=== PATIENT | female | born 1970 | race Caucasian/White ===

== ENCOUNTER 2019-12-10 00:09 | Emergency (ER) | payer BC, SELFPAY ==
[2019-12-10] VITALS (10 sets, daily range): BP systolic 140–154; BP diastolic 68–89; PULSE 88–95; RESP 13–22; TEMP 36.7; O2SAT 96–98
--- NOTE | 2019-12-10 00:29 | ED.ALLEREA ---
HPI - Allergic Reaction General Chief complaint: Allergic Reaction Stated complaint: allergic reaction Time Seen by Provider: 12/10/19 00:19 Source: RN notes reviewed History of Present Illness HPI narrative: Patient presents emergency department from home for lip swelling. Patient states symptoms began several hours ago with swelling of her right lip and progressed into swelling of the entire bilateral lower lip. Patient states that she has had no swelling of the lips she states mild feeling of swelling in throat but denies any difficulty speaking or swallowing denies any shortness of breath or chest pain. The patient states she did take 75 mg of Benadryl at home as well as 1 5 mg prednisone tablet patient denies any new medication and does states she was on Cipro in the past but is now on amlodipine and metoprolol Related Data Home Medications Medication Instructions Recorded Confirmed amlodipine-benazepril 1 cap PO DAILY 12/10/19 bupropion HCl 150 mg PO DAILY 12/10/19 cetirizine 10 mg PO DAILY PRN 12/10/19 escitalopram oxalate 10 mg PO DAILY 12/10/19 fluticasone furoate-vilanterol 1 ea INHALATION BID 12/10/19 [Breo Ellipta] hydroxychloroquine 200 mg PO BID 12/10/19 levonorgestrel-ethinyl estrad 1 tablet PO DAILY 12/10/19 [Jolessa] metoprolol succinate 25 mg PO DAILY 12/10/19 prednisone 10 mg PO BID 12/10/19 Allergies Allergy/AdvReac Type Severity Reaction Status Date / Time erythromycin base Allergy Mild NAUSEA/VOMI Verified 12/10/19 02:04 TING KETEK Allergy Mild NAUSEA/VOMI Uncoded 12/10/19 02:04 TING Review of Systems Review of Systems: Narrative: Gen.: Denies fevers or chills Eyes: Denies eye pain or visual change ENT: See HPI Respiratory: Denies shortness of breath or cough CV: Denies chest pain or palpitations GI: Denies abdominal pain nausea, emesis Musculoskeletal: Denies back pain or muscle pain Neuro: Denies headache Skin: Denies rash Except as documented, all other systems reviewed and negative [facility] Past Medical History Medical History (Updated 12/10/19 @ 03:22 by Tiago Ramsey DO) Hypertension Sjogren's disease Social History Social History (Updated 06/05/20 @ 00:32 by KENDALL Solomon Smoking status: Never smoker Gender identity (if verbalized by the patient): Female Exam Narrative: Exam Narrative: APPEARANCE: No acute distress, nontoxic, resting in bed EYES: EOMI HEENT: Normocephalic, atraumatic, nares patent oromucosa moist, swelling of the lower lip, no swelling of the upper lip airway patent tolerating own secretions voice normal uvula midline RESPIRATORY: No respiratory distress Clear to auscultation bilaterally with no rhonchi wheezing or rales. CARDIOVASCULAR: Regular rate and rhythm without murmurs rubs or gallops. ABDOMINAL: Soft, nontender, MUSCULOSKELETAl: Moves all extremities. No clubbing, cyanosis or edema. NEURO: Awake and alert. Following commands, speech normal, no focal deficits SKIN:: Warm, dry. No rashes lesions or abrasions PSYCHIATRIC: Normal affect/mood, Course Course Emergency Course: Upon review of the patient's medication she is actually on amlodipine 5 with benazepril which I believe is the cause of her symptoms Patient is feeling much better lip swelling has continued to decrease no shortness of breath or difficulty swallowing believe the patient may be discharged at this time Discussed with patient results of workup and diagnosis. Discussed need for follow-up with primary care, proper use of medication, and reasons to return to the emergency department. Patient understands and agrees to current treatment plan discussed with patient to stop taking her benazepril with amlodipine and will write prescription for amlodipine only Vital Signs Vital signs: Vital Signs Temperature 98.1 F 12/10/19 00:10 Pulse Rate 91 12/10/19 00:10 Respiratory Rate 16 12/10/19 00:10 Blood Pressure 149/75 H 12/10/19 00:10 Pulse Oxi
[2019-12-10] MEDS: methylPREDNISolone SOD SUCC 125 MG VIAL IV PUSH (00:50)
[2019-12-10] MEDS: FAMOTIDINE 20 MG/2 ML VIAL IV PUSH (01:11)
== END 2019-12-10 03:55 | disposition home or self-care (01) ==
PROVIDERS: Emergency Provider Emergency Medicine; PCP Internal Medicine
DX: T78.3XXA Angioneurotic edema, initial encounter (principal); I10 Essential (primary) hypertension; M35.00 Sjogren syndrome, unspecified
CPT/HCPCS: 96374; 96375; 99284; J2930

== ENCOUNTER 2021-05-21 10:03 | Emergency (ER) | payer BC, SELFPAY ==
[2021-05-21 10:23] VITALS: BP 134/75; PULSE 92; RESP 16; TEMP 36.9; O2SAT 100
--- NOTE | 2021-05-21 10:28 | ED.BACK ---
HPI - Back Pain/Injury General Chief Complaint: Back Pain/Injury Stated Complaint: Neck Pain,Pain Lower Back Rt Time Seen by Provider: 05/21/21 10:28 Source: patient and RN notes reviewed History of Present Illness HPI Narrative: 51-year-old female presents to the [facility] with complaints of neck pain and low back pain since Friday, 5 days. Pain right side lower back. 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 A lot of repetitive motion. Denies any numbness or tingling in extremities. Moves all joints without issue and freely. No saddle anesthesia. No loss or retention of bowel or bladder MD elicited complaint: back pain Related Data Home Medications Medication Instructions Recorded Confirmed bupropion HCl 150 mg PO DAILY 12/10/19 05/21/21 fluticasone furoate-vilanterol 1 ea INHALATION BID 12/10/19 05/21/21 [Breo Ellipta] levonorgestrel-ethinyl estrad 1 tablet PO DAILY 12/10/19 05/21/21 [Jolessa] metoprolol succinate 25 mg PO DAILY 12/10/19 05/21/21 hydroxychloroquine [Plaquenil] 200 mg PO DAILY 05/21/21 05/21/21 milnacipran [Savella] 50 mg PO DAILY 05/21/21 05/21/21 Allergies Allergy/AdvReac Type Severity Reaction Status Date / Time erythromycin base Allergy Mild NAUSEA/VOMI Verified 05/21/21 10:46 TING NSAIDS (Non-Steroidal AdvReac Intermediate GI bleed Verified 05/21/21 10:46 Anti-Inflamma KETEK Allergy Mild NAUSEA/VOMI Uncoded 05/21/21 10:46 TING Review of Systems Review of Systems: All systems reviewed & are unremarkable except as noted in HPI and below Constitutional: Constitutional: Reports no additional constitutional complaints, Denies chills and Denies fever(s) Eyes: Eyes: Reports no additional eye complaints ENT: Reports system reviewed and no additional complaints, except as documented Cardiovascular: Cardiovascular: Reports no additional cardiovascular complaints Respiratory: Respiratory: Reports no additional respiratory complaints Gastrointestinal: Gastrointestinal: Reports no additional gastrointestinal complaints Genitourinary: Genitourinary: Reports no additional female genitourinary complaints Musculoskeletal: Musculoskeletal: Reports as per HPI and Reports back pain Comments: neck pain Integumentary/Breasts: Skin/Breast: Reports system reviewed and no additional complaints, except as docu Neurologic: Reports system reviewed and no additional complaints, except as documented Psychiatric: Psychiatric: Reports no additional psychiatric complaints Allergic/Immunologic: Allergic/Immunologic: Reports no additional allergic/immunologic complaints PMFSH Past Medical History Medical History Hypertension Sjogren's disease Social History Social History Smoking status: Never smoker Gender identity (if verbalized by the patient): Female Comments At the time of my signature, I reviewed and agree with the nursing past medical, surgical, social, and family history. There is no relevant family history pertinent to the patient complaint. Exam Const: General: healthy appearing, no acute distress and alert Nutritional Appearance: well nourished Orientation/consciousness: patient oriented x3 Limitations: no limitations HENMT: Head: normal to inspection Ears: external ears normal, TM's normal bilaterally and EAC's normal Eyes: Conjunctivae: conjunctivae normal Pupils: Equal, round and reactive pupils present Neck: Neck: normal visual inspection, no lymphadenopathy and no meningeal signs Chest: Chest palpation & inspection: normal inspection of the chest Resp: Effort & Inspection: normal respiratory effort and no use of accessory muscles Auscultation: clear to auscultation bilaterally, no crackles, no rales, no rhonchi and no wheezes Cardio: Rate: regular rate Rhythm: regular rhythm GI: GI Palp: Yes Soft to palpation and No Tenderness to palpation present (GI) Back/
== END 2021-05-21 10:52 | disposition home or self-care (01) ==
PROVIDERS: Emergency Provider Nurse Practitioner; PCP Internal Medicine
DX: M54.31 Sciatica, right side (principal); S39.012A Strain of muscle, fascia and tendon of lower back, initial encounter; S16.1XXA Strain of muscle, fascia and tendon at neck level, initial encounter; X50.3XXA Overexertion from repetitive movements, initial encounter; Y99.0 Civilian activity done for income or pay; I10 Essential (primary) hypertension; M35.00 Sjogren syndrome, unspecified
CPT/HCPCS: 99213; G0463

== ENCOUNTER → 2022-02-25 14:06 | Outpatient (CLI) | payer BC, SELFPAY ==
--- NOTE | ~2022-02-25 | DEXA_ITS ---
Bone Density Report Name: ANDRES LI Age: 52 Sex: Female Ethnicity: White Date of : 1970 Indication: screening for osteoporosis; parental hip fracture; height loss; asthma or emphysema; Referring Provider: AUDI ARSHAD Study: Bone densitometry was performed. Exam Date: February 25, 2022 Accession number: [id number] Bone Density: Region BMD T-score Z-score Classification AP Spine (L1-L4) 1.269 2.0 2.9 Normal Femoral Neck (Left) 0.713 -1.2 -0.4 Osteopenia Total Hip (Left) 1.007 0.5 1.1 Normal Femoral Neck (Right) 0.745 -0.9 -0.1 Normal Total Hip (Right) 1.014 0.6 1.1 Normal Total Hip Mean 1.011 0.6 1.1 Normal World Health Organization criteria for BMD impression classify patients as: Normal (T-score at or above -1.0), Osteopenia (T-score between -1.0 and -2.5), or Osteoporosis (T-score at or below -2.5). 10-year Fracture Risk: FRAX not reported because: Premenopausal woman Treated for osteoporosis Clinical Information Provided by Patient: Parent has had a hip fracture Is being treated for osteoporosis Has used the following medications: HRT (i.e. estrogen/hormone therapy) Has the following medical conditions: Asthma or Emphysema Patient maximum height was 65.5 No regular weight bearing exercise Drinks caffeinated beverages Onset of menses at age 16 Premenopausal Number of children 2 Impression: The patient's bone mass is within expected range for age, gender and ethnicity. The patient has risk factors, including: parental hip fracture. Discussion: It is important to ask patients whether they are taking their medications and to encourage continued and appropriate compliance with their osteoporosis therapies to reduce fracture risk. It is also important to review their risk factors and encourage appropriate calcium and vitamin D intakes, exercise, fall prevention and other lifestyle measures. Follow-Up: Consider a repeat BMD and Vertebral Fracture Assessment (VFA) exam in 2 years or sooner if medically necessary, to reassess this patient's status. Reported by: MORIAH on 02/25/2022 3:09:00 PM. Reviewed, dictated and finalized at location [facility]
== END ==
DX: M25.559 Pain in unspecified hip (principal); M85.852 Other specified disorders of bone density and structure, left thigh
CPT/HCPCS: 77080

== ENCOUNTER 2023-02-13 13:12 | Outpatient (CLI) | payer BC, SELFPAY | END 2023-02-13 13:13 | disposition home or self-care (01) | PROVIDERS: Visit Provider Nurse Practitioner Family | DX: M25.562 Pain in left knee (principal) | CPT/HCPCS: 73564 ==

== ENCOUNTER 2023-06-06 17:43 | Emergency (ER) | payer BC, SELFPAY ==
[2023-06-06 17:55] VITALS: BP 142/82; PULSE 98; RESP 16; TEMP 36.6; O2SAT 100
--- NOTE | 2023-06-06 18:13 | ED.GENADULT ---
HPI - General Adult General Chief complaint: Urogenital-Female Stated complaint: Female Urogenital Source: patient, RN notes reviewed and old records reviewed Mode of arrival: ambulatory Limitations: no limitations History of Present Illness HPI narrative: 53 year old female who presents with complaint incomplete bladder emptying for about 1 month. Patient states feels the urge to urinate but is unable to go. Patient denies abdominal pain, patient denies back pain, patient denies burning with urination. Patient worried because she said she had up bladder sling placed approximately 6 months ago. Related Data Home Medications Medication Instructions Recorded Confirmed bupropion HCl 150 mg 24 hr tablet, 300 mg PO DAILY 12/10/19 06/06/23 extended release fluticasone furoate 100 1 ea inhalation BID 12/10/19 06/06/23 mcg-vilanterol 25 mcg/dose inhalation powder (Breo Ellipta) levonorgestrel 0.15 mg-ethinyl 1 tablet PO DAILY 12/10/19 06/06/23 estradiol 30 mcg tablets,3 mos pack(91) (Jolessa) metoprolol succinate 25 mg 25 mg PO DAILY 12/10/19 06/06/23 tablet,extended release 24 hr hydroxychloroquine 200 mg tablet 200 mg PO DAILY 05/21/21 06/06/23 (Plaquenil) milnacipran 50 mg tablet (Savella) 50 mg PO DAILY 05/21/21 06/06/23 trazodone 50 mg tablet 50 mg PO HS 06/06/23 06/06/23 Allergies Allergy/AdvReac Type Severity Reaction Status Date / Time NSAIDS (Non-Steroidal Allergy Intermediate GI bleed Verified 06/06/23 17:47 Anti-Inflamma erythromycin base AdvReac Intermediate NAUSEA/VOMI Verified 06/06/23 17:47 TING KETEK AdvReac Intermediate NAUSEA/VOMI Uncoded 06/06/23 17:47 TING Review of Systems Constitutional: Constitutional: Reports no additional constitutional complaints Eyes: Eyes: Reports no additional eye complaints ENT: Reports system reviewed and no additional complaints, except as documented Cardiovascular: Cardiovascular: Reports no additional cardiovascular complaints Respiratory: Respiratory: Reports no additional respiratory complaints Gastrointestinal: Gastrointestinal: Denies abdominal pain, Denies melena, Denies hematochezia and Denies nausea Genitourinary: Genitourinary: Reports as per HPI, Denies hematuria, Reports urinary frequency, Denies post void dribbling, Denies nocturia, Denies genital pruritis, Reports dysmenorrhea, Reports dysuria, Denies pelvic pain, Denies prolapse symptoms, Denies urinary incontinence, Reports urinary hesitancy, Denies urinary urgency, Denies vaginal discharge and Denies vaginal odor Neurologic: Reports system reviewed and no additional complaints, except as documented PMFSH Past Medical History Medical History Hypertension Sjogren's disease Social History Social History Smoking status: Never smoker Gender identity (if verbalized by the patient): Female Comments At the time of my signature, I reviewed and agree with the nursing past medical, surgical, social, and family history. There is no relevant family history pertinent to the patient complaint. Exam Const: General: cooperative, healthy appearing, no acute distress and well nourished Nutritional Appearance: well nourished Orientation/consciousness: patient oriented x3 Limitations: no limitations HENMT: Head: normal to inspection and normocephalic Ears: external ears normal, TM's normal bilaterally, mastoids normal and Abnormal EAC present Face/Nose/Sinus: normal facial exam Face and sinus: normal facial exam Mouth: Yes Normal oral and palatal mucosa present, Yes oropharynx normal and Yes moist mucous membranes Throat: posterior oropharynx normal, tonsils normal, uvula midline and no uvular edema Eyes: General: appearance normal, both eyes and all related structures Sclera: sclerae normal Pupils: Equal, round and reactive pupils present Resp: Effort & Inspection: nor
== END 2023-06-06 18:20 | disposition home or self-care (01) ==
PROVIDERS: Emergency Provider Registered Nurse; PCP Nurse Practitioner Family
DX: R30.0 Dysuria (principal); R33.9 Retention of urine, unspecified; I10 Essential (primary) hypertension; M35.00 Sjogren syndrome, unspecified
CPT/HCPCS: 81003; 87086; 87088; 99213; G0463

== ENCOUNTER 2024-02-25 11:44 | Outpatient (CLI) | payer BC, SELFPAY ==
--- NOTE | ~2024-02-25 | XR_ITS ---
EXAMINATION: [id number] DATE: 02/25/2024 12:21 INDICATION: Lateral left lower rib pain TECHNIQUE: A frontal inspiratory view of the chest and 3 views of the left ribs were obtained. COMPARISON: None FINDINGS: No rib fractures identified. Lungs are clear without focal airspace opacities, pulmonary edema, pleur al effusion or pneumothorax. Heart size is normal. Pars 5 projecting over the mid right lung with jonny d extending cephalad to the right neck. There is an additional disconnected lead projecting over the right upper lung. Moderate lumbar spondylosis. IMPRESSION: 1. No rib fracture or acute cardiopulmonary disease. Reviewed, dictated and finalized at location A.
== END 2024-02-25 11:45 ==
LOC: MICIMG 11:54
PROVIDERS: PCP Nurse Practitioner Family; Visit Provider Nurse Practitioner Family
DX: R07.81 Pleurodynia (principal)
CPT/HCPCS: 71101

== ENCOUNTER 2024-02-25 11:56 | Outpatient (CLI) | payer BC, SELFPAY ==
--- NOTE | ~2024-02-25 | XR_ITS ---
XR hip BI wo pelvis Ordering provider: Declan Vásquez History: . No injury bilateral hip pain for 10 years . Comparison: None. FINDINGS: BONES: No acute fracture or dislocation. HIP JOINT SPACES: Narrowing of the joint spaces which is suggestive of Mild to moderate osteoarthriti c changes. SACROILIAC JOINT SPACES/LUMBAR SPINE: The sacroiliac joint spaces are normal. Normal lumbar spine. PUBIC SYMPHYSIS: Normal. SOFT TISSUES: Normal. IMPRESSION: No acute osseous abnormality of the bilateral hips and pelvis. Mild osteoarthritic changes of both hips. Reviewed, dictated and finalized at location A.
== END 2024-02-25 11:57 ==
DX: M25.552 Pain in left hip (principal); M25.551 Pain in right hip; M16.0 Bilateral primary osteoarthritis of hip
CPT/HCPCS: 73521

== ENCOUNTER 2024-05-01 08:03 | Emergency (ER) | payer BC, SELFPAY ==
--- NOTE | 2024-05-01 08:11 | ED.GENADULT ---
HPI - General Adult General Chief complaint: Chest Pain Stated complaint: abdominal and back pain Time Seen by Provider: 05/01/24 08:10 Source: patient Mode of arrival: ambulatory Limitations: no limitations History of Present Illness HPI narrative: 54-year-old female patient presents to [facility] with complaints of abdominal pain, back pain, chest pain shortness of breath. Patient states she started having some upper chest pain that radiated to the left arm and the left upper abdomen. Patient states it came on suddenly about 2:00 a.m. while she was sleeping. Patient states 2 days she has some left flank pain that wraps around to the left side of the abdomen and is continuing to complain of mild chest pain with some shortness of breath. Denies fevers, body aches or chills. Denies any nausea, vomiting or diarrhea. Denies any dizziness or lightheadedness. Patient states she did take a prednisone and ibuprofen this morning to help with pain. Related Data Home Medications Medication Instructions Recorded Confirmed bupropion HCl 150 mg 24 hr tablet, 300 mg PO DAILY 12/10/19 05/01/24 extended release levonorgestrel 0.15 mg-ethinyl 1 tablet PO DAILY 12/10/19 05/01/24 estradiol 30 mcg tablets,3 mos pack(91) (Jolessa) metoprolol succinate 25 mg 25 mg PO DAILY 12/10/19 05/01/24 tablet,extended release 24 hr hydroxychloroquine 200 mg tablet 200 mg PO DAILY 05/21/21 05/01/24 (Plaquenil) milnacipran 50 mg tablet (Savella) 50 mg PO DAILY 05/21/21 05/01/24 trazodone 50 mg tablet 50 mg PO HS 06/06/23 05/01/24 Allergies Allergy/AdvReac Type Severity Reaction Status Date / Time NSAIDS (Non-Steroidal Allergy Intermediate GI bleed Verified 05/01/24 08:17 Anti-Inflamma erythromycin base AdvReac Intermediate NAUSEA/VOMI Verified 05/01/24 08:17 TING KETEK AdvReac Intermediate NAUSEA/VOMI Uncoded 05/01/24 08:17 TING Review of Systems Review of Systems: CONSTITUTIONAL: Denies fever, chills, or sweats. EYES: Denies visual changes, redness, or discharge. ENT: Denies rhinorrhea, congestion, sore throat, or otalgia. CARDIOVASCULAR: Positive chest pain, palpitations, or edema. RESPIRATORY: Denies cough or dyspnea. GASTROINTESTINAL: positive abdominal pain, positive left flank pain denies nausea, vomiting, or diarrhea. GENITOURINARY: Denies dysuria or hematuria. SKIN: Denies rash or itching. MUSCULOSKELETAL: positive left lower back pain, denies joint pain, or myalgia. NEUROLOGIC: Denies headache, numbness, or weakness. PSYCHIATRIC: Denies anxiety or depression. [facility] Past Medical History Medical History Hypertension Sjogren's disease Social History Social History Smoking status: Never smoker Gender identity (if verbalized by the patient): Female Comments At the time of my signature I agree with nursing past medical history, surgical, social, and family history. There is no relevant family history pertinent to the presenting complaint. Exam Narrative: GENERAL: Well-appearing, well-nourished, and in no acute distress. HEAD: Normocephalic, atraumatic. EYES: PERRLA and EOMI. ENT: Nares clear, no rhinorrhea or epistaxis. Mucous membranes moist. posterior pharynx with no erythema, tonsillar enlargement, exudates or lesions present. Bilateral TMs are clear no erythema or foreign bodies the canal. NECK: Supple. No lymphadenopathy CHEST: Clear to auscultation. No respiratory distress. Patient able talk in clear complete sentences. No tripoding noted. HEART: Regular rate and rhythm. No murmur heard. Normal peripheral pulses. ABDOMEN: Soft, nontender, nondistended, normal active bowel sounds. Left CVA tenderness on percussion. EXTREMITIES: Normal range of motion. No edema. SKIN: Warm, dry, no rash. NEURO: No focal deficits. Alert and oriented x3. Course Course Level of Care: Express Care Visit Vital Signs Vital signs: Vital Signs Temperature 36.5 C 05/01/24 08:16 Pulse Rate 117 H 05/01/24 08:16 Respiratory Rate 18 05/01/24 08:16 Blood Pressure 153/83 H 05/01/24 08:16 Pulse Oximetry 99 05/01/24 08:16 Oxygen Delivery Room Air 05/01/24 08:16 Temperature 36.5 C 05/01/24 08:18 Pulse Rate 117 H 05/01/24 08:18 Respiratory Rate 18 05/01/24 08:18 Blood Pressure 153/83 H 05/01/24 08:18 Pulse Oximetry 99 05/01/24 08:18 Oxygen Delivery Room Air 05/01/24 08:18 vital signs reviewed. The patient has been informed that they may have pre-hypertension or Hypertension based on a BP reading in the department. I recommend that the patient call the primary care provider listed on their discharge instructions or a physician of their choice this week to arrange follow up for further evaluation of possible pre-hypertension or Hypertension Transfer Transfered to: [facility] Transportation: Other ( private vehicle with . Patient refused EMS. Patient signed refusal form.) Transfer rationale: Chest pain, shortness of breath with abnormal ECG. Accepting physician: Dr. Mccollum Transfer comments: called gave Dr. Mccollum report on patient coming over for further evaluation for possible septal myocardial infarction due to Q-waves present in V1 V2 as well as symptomatic with 2 day history of left upper chest pain that and now has left-sided abdominal pain and left-sided back pain with shortness of breath. Medical Decision Making MDM Narrative Medical decision making narrative: Discussed with patient that her EKG does appear abnormal and does have some Q-waves present to V1 and V2 which could indicate a septal myocardial infarction. Discussed with patient that since she is symptomatic we do need to send her to the ER for further evaluation. Discussed with her that her left lower flank pain could also be due to a kidney stone but we need to get her heart checked out 1st. Patient is aware the plan of care. Patient does agree to go to [facility] for further evaluation treatment. Differential Diagnosis Differential Diagnosis: Differential diagnosis: Uncomplicated lower UTI, uncomplicated UTI, pyelonephritis. Appendicitis, ovarian torsion, gallbladder disease, ovarian torsion, pancreatitis, lower lobe pneumonia,AAA, AMI or ACS, DKA, diverticulitis. Vital Signs Vital Signs: Vital Signs Temperature 36.5 C 05/01/24 08:16 Pulse Rate 117 H 05/01/24 08:16 Respiratory Rate 18 05/01/24 08:16 Blood Pressure 153/83 H 05/01/24 08:16 Pulse Oximetry 99 05/01/24 08:16 Oxygen Delivery Room Air 05/01/24 08:16 Temperature 36.5 C 05/01/24 08:18 Pulse Rate 117 H 05/01/24 08:18 Respiratory Rate 18 05/01/24 08:18 Blood Pressure 153/83 H 05/01/24 08:18 Pulse Oximetry 99 05/01/24 08:18 Oxygen Delivery Room Air 05/01/24 08:18 ECG Data EKG #1: Interpretation: Sinus tachycardia. Possible left atrial enlargement, -0.1 MV P-wave in V1/ V2. Low QRS voltage in pericardial leads. QRS deflection of less than 1.0 mV in chest leads. Septal myocardial infarction. 40+ M as Q-wave in V1/ V2 of indeterminate age. Abnormal ECG. Unconfirmed report. Vent rate: 109 MN interval: 152 QRS duration: 73 QT/ QTC: 346/410 P-R- T axes: 72, 37, 63 EKG Interpretation: tachycardia Critical Care Time Critical Care Time Critical Care Time: No Discharge Plan Discharge Clinical Impression: Abnormal ECG, Abdominal pain, Shortness of breath Patient Disposition: Acute Care Hospital Condition: Stable Instructions: Antibiotic Form Prescriptions: No Action Savella 50 mg tablet 50 mg PO DAILY hydroxychloroquine [Plaquenil] 200 mg Tablet 200 mg PO DAILY trazodone 50 mg tablet 50 mg PO HS metoprolol succinate 25 mg tablet extended release 24 hr 25 mg PO DAILY bupropion HCl 150 mg tablet extended release 24 hr 300 mg PO DAILY levonorgestrel-ethinyl estrad [Jolessa] 0.15 mg-30 mcg (91) tablets,dose pack,3 month 1 tablet PO DAILY amlodipine 5 mg tablet 5 mg PO DAILY Qty: 14 0RF Follow-up/Referrals: Karin,Homa Hernandez APRN [Primary Care Provider] - Time of Disposition: 08:50
[2024-05-01 08:16] VITALS: BP 153/83; PULSE 117; RESP 18; TEMP 36.5; O2SAT 99
[2024-05-01 08:18] VITALS: BP 153/83; PULSE 117; RESP 18; TEMP 36.5; O2SAT 99
[2024-05-01] MEDS: ASPIRIN 81 MG CHEWABLE TABLET 324 MG PO (08:38)
--- NOTE | 2024-05-01 08:50 | ECG_ITS ---
Test Date: 2024-05-01 08:29:00 Measurements Intervals [place] Rate: 109 P: 72 CO: 152 QRS: 37 QRSD: 73 T: 63 QT: 346 QTc: 467 Interpretive Statements SINUS TACHYCARDIA POSSIBLE LEFT ATRIAL ENLARGEMENT [-0.1mV P WAVE IN V1/V2] LOW QRS VOLTAGE IN PRECORDIAL LEADS [QRS DEFLECTION < 1.0 mV IN CHEST LEADS] SEPTAL MYOCARDIAL INFARCTION [40+ ms Q WAVE IN V1/V2], OF INDETERMINATE AGE ABNORMAL ECG No previous ECG available for comparison Electronically Signed On 05-01-2024 13:16:32 CDT by Beny Aguilar M.D.
== END 2024-05-01 08:41 | disposition short-term general hospital (02) ==
PROVIDERS: Emergency Provider Nurse Practitioner Family; PCP Nurse Practitioner Family
DX: R94.31 Abnormal electrocardiogram [ECG] [EKG] (principal); R10.9 Unspecified abdominal pain; R06.02 Shortness of breath; I10 Essential (primary) hypertension; M35.00 Sjogren syndrome, unspecified
CPT/HCPCS: 93005; 99213; A9270; G0463

== ENCOUNTER 2024-05-01 08:53 | Emergency (ER) | payer BC, SELFPAY ==
[2024-05-01] VITALS (11 sets, daily range): BP systolic 144–181; BP diastolic 76–91; PULSE 111–136; RESP 10–19; TEMP 36.8; O2SAT 97–100
--- NOTE | ~2024-05-01 | CT_ITS ---
EXAMINATION: CTA chest PE abdomen pel DATE: 05/01/2024 10:22 INDICATION: Chest pain. TECHNIQUE: Computed tomography angiography (CTA) of the chest was performed with 100 mL Omnipaque-350 intravenous contrast timed to evaluate the pulmonary arteries. Coronal maximum intensity projection 3D-reconstructions were created by the technologist. Computed tomography (CT) of the abdomen and pelv is was performed with intravenous contrast. Automated exposure control and iterative reconstruction t echnique were employed. The dose-length product was 661.46 mGy-cm. COMPARISON: CT chest 09/30/2013 FINDINGS: CTA chest: There is no pneumonia or pleural effusion. The heart size is normal. No pericardial effusi on. There is a small sliding hiatal hernia. There is no pulmonary embolus. There is a subcutaneous im plant in anterior right chest with lead in right neck. There is a second lead in anterior right chest wall abutting the pleura (breathing sensor). There is mild thoracic spondylosis. CT abdomen and pelvis: The liver, gallbladder, spleen, pancreas, adrenal glands, and kidneys are norm al. There are no dilated loops of bowel. The appendix is normal. There is a supraumbilical ventral he rnia containing fat. There are no pathologically enlarged lymph nodes. There is no free intraperitone al fluid. There is severe lumbar spondylosis. IMPRESSION: 1. No pulmonary embolus. Sensitivity is mildly decreased by motion artifact. 2. Small sliding hiatal hernia. 3. Supraumbilical ventral hernia containing fat. Reviewed, dictated and finalized at location A.
--- NOTE | ~2024-05-01 | XR_ITS ---
EXAMINATION: XR chest 2V DATE: 05/01/2024 09:28 INDICATION: Chest pain. Left arm pain. TECHNIQUE: Frontal and lateral views of the chest were obtained. COMPARISON: Chest 2 views 10/13/2007, chest CT 09/30/2013 FINDINGS: There is no pneumonia, pleural effusion, or pneumothorax. The heart size is normal. There i s an electronic implant in the anterior right chest wall with electrode coursing into right neck. IMPRESSION: 1. No acute cardiopulmonary disease. Reviewed, dictated and finalized at location A.
--- NOTE | 2024-05-01 08:54 | ECG_ITS ---
Test Date: 2024-05-01 09:01:19 Measurements Intervals [place] Rate: 136 P: 67 UT: 140 QRS: 12 QRSD: 86 T: 62 QT: 330 QTc: 497 Interpretive Statements SINUS TACHYCARDIA POSSIBLE ANTERIOR MYOCARDIAL INFARCTION , PROBABLY OLD [30 ms Q WAVE IN V3/V4, OR R < 0.2 mV IN V4] ABNORMAL ECG Compared to ECG 05/01/2024 08:29:00 No significant changes Electronically Signed On 05-01-2024 13:16:40 CDT by Beny Aguilar M.D.
[2024-05-01 09:11] LABS: Basophils Absolute Auto 0.1 K/mm3 (0.0-0.1); Basophils Percent Auto 0.6 % (0.2-1.2); Eosinophils Percent Auto 0.1 % (0-4.4); Hematocrit 46.3 % (37.0-47.0); Hemoglobin 15.6 g/dL (12.0-15.0); Immature Granulocyte Absolute 0.03 K/mm3 (0.00-0.031); Immature Granulocyte Percent A 0.3 % (0-0.5); Lymphocytes Absolute Auto 1.47 K/mm3 (0.9-3.2); Lymphocytes Percent Auto 16.7 % (18.3-44.2); Mean Corpuscular HGB Conc 33.7 g/dl (32-36); Mean Corpuscular Hemoglobin 30.1 pg (26-34); Mean Corpuscular Volume 89.4 fl (80-100); Mean Platelet Volume 9.8 fl (7.4-10.4); Monocytes Absolute Auto 0.2 K/mm3 (0.1-0.6); Monocytes Percent Auto 1.9 % (2.6-8.5); Neutrophils Absolute Auto 7.1 K/mm3 (1.3-6.7); Neutrophils Percent Auto 80.4 % (45.5-73.1); Platelet Count Result 277 k/mm3 (150-375); Red Blood Count 5.18 M/mm3 (4.2-5.4); Red Cell Distribution Width 12.7 % (11.5-14.5); White Blood Count 8.8 K/mm3 (4.5-10.0)
[2024-05-01 09:21] LABS: Alanine Aminotransferase 25 U/L (6-35); Albumin Level 4.8 g/dL (3.5-5.1); Alkaline Phosphatase 81 U/L (38-126); Anion Gap 13 mmol/L (4-12); Aspartate Amino Transferase 27 U/L (14-36); Bilirubin,Total 0.7 mg/dL (0.2-1.3); Blood Urea Nitrogen 9 mg/dL (7-17); Calcium 9.1 mg/dL (8.4-10.2); Carbon Dioxide 23 mmol/L (22-30); Chloride 104 mmol/L (98-107); Estimated CRCL calculation 71 ml/min; Estimated Glomerular Filt Rate > 60; Glucose 165 mg/dL (65-110); Lipase 103 U/L (23-300); Potassium 3.6 mmol/L (3.4-5.0); Sodium 140 mmol/L (137-145)
[2024-05-01 09:27] LABS: INR 0.9; Partial Thromboplastin Time 24.2 Seconds (22.3-36.8); Prothrombin Time 12.9 Seconds (11.1-14.7)
[2024-05-01 09:33] LABS: Troponin I < 0.012 ng/mL (0.000-0.034)
[2024-05-01] MEDS: MORPHINE SULFATE (*CRX) 4 MG/ML INJ IV PUSH (10:36)
[2024-05-01] MEDS: SODIUM CHLORIDE 0.9% IV 1,000 ML 999 ML IV CONT ×2 (10:36→13:33)
--- NOTE | 2024-05-01 12:00 | ECG_ITS ---
Test Date: 2024-05-01 12:12:20 Measurements Intervals [place] Rate: 114 P: 61 NE: 144 QRS: 15 QRSD: 85 T: 55 QT: 286 QTc: 395 Interpretive Statements SINUS TACHYCARDIA POSSIBLE LEFT ATRIAL ENLARGEMENT [-0.1mV P-WAVE IN V1/V2] LOW QRS VOLTAGE IN PRECORDIAL LEADS [QRS DEFLECTION < 1.0 mV IN CHEST LEADS] POSSIBLE ANTERIOR MYOCARDIAL INFARCTION , PROBABLY OLD [30 ms Q WAVE IN V3/V4, OR R < 0.2 mV IN V4] ABNORMAL ECG Compared to ECG 05/01/2024 09:01:19 Low QRS voltage now present Myocardial infarct finding still present Electronically Signed On 05-01-2024 13:18:51 CDT by Beny Aguilar M.D.
--- NOTE | 2024-05-01 12:02 | ED_ITS ---
HPI - General Adult General Chief complaint: Chest Pain Stated complaint: chest pain Time Seen by Provider: 05/01/24 09:17 History of Present Illness HPI narrative: Patient is a 54-year-old female who presents ER with pain in her chest and abdomen. Chest discomfort began over last 2 days. Is originally anterior chest and is now and the left posterior back near the shoulder. No exertional component. No fevers or chills or sweats. Has history of pleurisy in the past. Today she has developed sharp pain in her left upper quadrant. No diarrhea. No fevers or chills. Does not have history of diverticulitis. Patient reports she was moving some rocks other day and she could have a muscle strain related to it. Related Data Home Medications Medication Instructions Recorded Confirmed bupropion HCl 150 mg 24 hr tablet, 300 mg PO DAILY 12/10/19 05/01/24 extended release levonorgestrel 0.15 mg-ethinyl 1 tablet PO DAILY 12/10/19 05/01/24 estradiol 30 mcg tablets,3 mos pack(91) (Jolessa) metoprolol succinate 25 mg 25 mg PO DAILY 12/10/19 05/01/24 tablet,extended release 24 hr hydroxychloroquine 200 mg tablet 200 mg PO DAILY 05/21/21 05/01/24 (Plaquenil) milnacipran 50 mg tablet (Savella) 50 mg PO DAILY 05/21/21 05/01/24 trazodone 50 mg tablet 50 mg PO HS 06/06/23 05/01/24 Allergies Allergy/AdvReac Type Severity Reaction Status Date / Time NSAIDS (Non-Steroidal Allergy Intermediate GI bleed Verified 05/01/24 08:17 Anti-Inflamma erythromycin base AdvReac Intermediate NAUSEA/VOMI Verified 05/01/24 08:17 TING KETEK AdvReac Intermediate NAUSEA/VOMI Uncoded 05/01/24 08:17 TING Review of Systems Review of Systems: All systems reviewed & are unremarkable except as noted in HPI and below Constitutional: Constitutional: Reports no additional constitutional complaints ENT: Reports system reviewed and no additional complaints, except as documented Cardiovascular: Cardiovascular: Reports chest pain, Denies rapid heart rate, Reports radiating jaw, neck or arm pain and Denies slow heart rate Respiratory: Respiratory: Reports no additional respiratory complaints Gastrointestinal: Gastrointestinal: Reports abdominal pain, Denies constipation, Denies diarrhea, Denies nausea and Denies vomiting Genitourinary: Genitourinary: Reports no additional female genitourinary complaints PMFSH Past Medical History Medical History Hypertension Sjogren's disease Social History Social History Smoking status: Never smoker Gender identity (if verbalized by the patient): Female Exam Narrative: GENERAL: Well-appearing, well-nourished, and in no acute distress. HEAD: Normocephalic, atraumatic. ENT: Mucous membranes moist. NECK: Supple. CHEST: Clear to auscultation. No respiratory distress. HEART: Tachycardic and regular. Normal peripheral pulses. ABDOMEN: Soft, moderate tenderness in left upper quadrant with voluntary guarding, nondistended. BACK: no midline or paraspinal tenderness the T/L spine. No reproducible shoulder tenderness. EXTREMITIES: Normal range of motion. No edema. SKIN: Warm, dry, no rash. NEURO: Alert and oriented x3. PSYCH: Normal mood and affect. Course Course Emergency Course: Unremarkable evaluation with labs within acceptable limits. Troponin negative x2. Tachycardia improving with pain medication and fluids. Patient given reassurance. Follow-up with PCP. Vital Signs Vital signs: Vital Signs Pulse Rate 136 H 05/01/24 08:59 Respiratory Rate 13 05/01/24 08:59 Blood Pressure 181/89 H 05/01/24 08:59 Pulse Oximetry 100 05/01/24 08:59 Oxygen Delivery Room Air 05/01/24 08:59 Pulse Rate 117 H 05/01/24 12:46 Respiratory Rate 19 05/01/24 12:46 Blood Pressure 156/89 H 05/01/24 12:46 Pulse Oximetry 99 05/01/24 12:46 Oxygen Delivery Room Air 05/01/24 08:59 Medical Decision Making Vital Signs Vital Signs: Vital Signs Pulse Rate 136 H 05/01/24 08:59 Respiratory Rate 13 05/01/24 08:59 Blood Pressure 181/89 H 05/01/24 08:59 Pulse Oximetry 100 05/01/24 08:59 Oxygen Delivery Room Air 05/01/24 08:59 Pulse Rate 117 H 05/01/24 12:46 Respiratory Rate 19 05/01/24 12:46 Blood Pressure 156/89 H 05/01/24 12:46 Pulse Oximetry 99 05/01/24 12:46 Oxygen Delivery Room Air 05/01/24 08:59 Lab Data 05/01/24 09:06 05/01/24 09:06 Labs: Lab Results 05/01/24 05/01/24 Range/Units 09:06 11:57 WBC 8.8 (4.5-10.0) K/mm3 RBC 5.18 (4.2-5.4) M/mm3 Hgb 15.6 H (12.0-15.0) g/dL Hct 46.3 (37.0-47.0) % MCV 89.4 (80-100) fl MCH 30.1 (26-34) pg MCHC 33.7 (32-36) g/dl RDW 12.7 (11.5-14.5) % Plt Count 277 (150-375) k/mm3 MPV 9.8 (7.4-10.4) fl Immature Gran % (Auto) 0.3 (0-0.5) % Neut % (Auto) 80.4 H (45.5-73.1) % Lymph % (Auto) 16.7 L (18.3-44.2) % [place] % (Auto) 1.9 L (2.6-8.5) % Eos % (Auto) 0.1 (0-4.4) % Baso % (Auto) 0.6 (0.2-1.2) % Lymph # (Auto) 1.47 (0.9-3.2) K/mm3 [place] # (Auto) 0.2 (0.1-0.6) K/mm3 Eos # (Auto) 0.0 (0-0.3) K/mm3 Baso # (Auto) 0.1 (0.0-0.1) K/mm3 Abs Immat Gran (auto) 0.03 (0.00-0.031) K/mm3 Absolute Neuts (auto) 7.1 H (1.3-6.7) K/mm3 Absolute Nucleated RBC 0.000 (0.0-0.012) K/mm3 Nucleated RBC % 0.0 (0.0-0.2) % PT 12.9 (11.1-14.7) Seconds INR 0.9 APTT 24.2 (22.3-36.8) Seconds Sodium 140 (137-145) mmol/L Potassium 3.6 (3.4-5.0) mmol/L Chloride 104 (98-107) mmol/L Carbon Dioxide 23 (22-30) mmol/L Anion Gap 13 H (4-12) mmol/L BUN 9 (7-17) mg/dL Creatinine 0.80 (0.7-1.0) mg/dL Estim Creat Clear Calc 71 ml/min Estimated GFR > 60 (59 - ) Glucose 165 H (65-110) mg/dL Calcium 9.1 (8.4-10.2) mg/dL Total Bilirubin 0.7 (0.2-1.3) mg/dL AST 27 (14-36) U/L ALT 25 (6-35) U/L Alkaline Phosphatase 81 (38-126) U/L Troponin I < 0.012 < 0.012 (0.000-0.034) ng/mL Total Protein 9.0 H (6.3-8.2) g/dL Albumin 4.8 (3.5-5.1) g/dL Lipase 103 (23-300) U/L Imaging Data Radiologist's impression: ITS Impressions Chest X-Ray 05/01/24 09:33 IMPRESSION: 1. No acute cardiopulmonary disease. Chest/Abdomen/Pelvis CTA 05/01/24 10:25 IMPRESSION: 1. No pulmonary embolus. Sensitivity is mildly decreased by motion artifact. 2. Small sliding hiatal hernia. 3. Supraumbilical ventral hernia containing fat. ECG Data EKG #1: ECG completion date: 05/01/24 ECG completion time: 09:01 EKG Interpretation: tachycardia (136), sinus rhythm, no ectopy, normal QRS, normal QT, NL axis and no acute changes Discharge Plan Discharge Clinical Impression: Abdominal pain, Chest pain Patient Disposition: Home, Self-Care Condition: Stable Instructions: Chest Pain (ED), Abdominal Pain (ED) Additional Instructions: Please return to the emergency department if you develop severe and persistent chest pain, difficulty breathing, dizziness, leg swelling or if you are coughing up blood as these can be signs of a medical emergency. Please call your doctor for a follow up appointment to determine the need for further testing. Prescriptions: New cyclobenzaprine 10 mg tablet 10 mg PO TID PRN (Reason: muscle spasm) Qty: 20 0RF acetaminophen 500 mg capsule 500 mg PO QID PRN (Reason: pain) Qty: 14 0RF No Action Savella 50 mg tablet 50 mg PO DAILY hydroxychloroquine [Plaquenil] 200 mg Tablet 200 mg PO DAILY trazodone 50 mg tablet 50 mg PO HS metoprolol succinate 25 mg tablet extended release 24 hr 25 mg PO DAILY bupropion HCl 150 mg tablet extended release 24 hr 300 mg PO DAILY levonorgestrel-ethinyl estrad [Jolessa] 0.15 mg-30 mcg (91) tablets,dose pack,3 month 1 tablet PO DAILY amlodipine 5 mg tablet 5 mg PO DAILY Qty: 14 0RF Follow-up/Referrals: Karin,Homa Hernandez, [employer] [Primary Care Provider] - 1 Week Quality HEART score for chest pain patients History: slightly suspicious ECG: non specific repolarization disturbance/LBTB/PM Age: > 45 and < 65 years Risk factors: 1 or 2 risk factors Troponin: < or = to 1x normal limit Heart score: 3
[2024-05-01 12:25] LABS: Troponin I < 0.012 ng/mL (0.000-0.034)
[2024-05-01] MEDS: KETOROLAC 30 MG/ML VIAL (*BKC) IV PUSH (13:03)
== END 2024-05-01 14:45 | disposition home or self-care (01) ==
PROVIDERS: Emergency Provider Emergency Medicine; PCP Nurse Practitioner Family
DX: R07.89 Other chest pain (principal); R10.12 Left upper quadrant pain; I10 Essential (primary) hypertension; M35.00 Sjogren syndrome, unspecified; Z79.899 Other long term (current) drug therapy; K44.9 Diaphragmatic hernia without obstruction or gangrene; K43.9 Ventral hernia without obstruction or gangrene; R00.0 Tachycardia, unspecified; R94.31 Abnormal electrocardiogram [ECG] [EKG]
CPT/HCPCS: 36415; 71046; 71275; 74177; 80053; 83690; 84484; 85025; 85610; 85730; 93005; 96361; 96374; 96375; 99284; J1885; J2270; J7030; Q9967

== ENCOUNTER 2024-11-28 12:05 | Emergency (ER) | payer BC, SELFPAY ==
--- NOTE | ~2024-11-28 | XR_ITS ---
HISTORY: pain COMPARISON: None TECHNIQUE: 3 views of the left wrist were performed. FINDINGS: No acute fracture is identified. The carpal arcs are intact. Mild radiocarpal joint space narrowing with sclerosis of the distal radius is present. The remaining visualized joint spaces are otherwise preserved. Bone mineralization is unremarkable. No significant soft tissue swelling is noted. No radiopaque foreign body is identified. IMPRESSION: Degenerative disease, without acute fracture. Reviewed, dictated and finalized at location A.
--- NOTE | ~2024-11-28 | XR_ITS ---
HISTORY: pain, fell from a ladder COMPARISON: None TECHNIQUE: 2 views of the left forearm were performed FINDINGS: No acute or subacute fracture. Joint spaces are preserved and alignment is maintained. Soft tissues are unremarkable without radiopaque foreign body or significant calcification. Age-appropriate mineralization. IMPRESSION: No acute fracture as detailed above. Reviewed, dictated and finalized at location A.
--- OUTSIDE RECORDS SUMMARY | 2024-11-28 12:08 | XMS_ITS | Clinical Summary ---
Author Organization [facility] Address [address] [place] [address] Care Team Providers Care Charter Boat Captain Name Role Phone Homa Frazier Amy DISABILITY INSURANCE CLAIM EXAMINER Primary Care Provider [phone] Allergies Active Allergy Reactions Criticality Noted Date Comments Benazepril Anaphylaxis,Angioedema High 12/14/2019 Erythromycin Stomach upset,Unknown Low 10/15/2021 Nuts Shortness of breath High 10/28/2013 Sulfa (Sulfonamide Antibiotics) Unknown 06/18/2021 Tree Nuts Shortness of breath High 10/28/2013 Unclassified Drug Unknown 10/15/2021 Medications metoprolol XL (TOPROL-XL) 25 mg 24 hr tabletIndications :hypertension Take 1 tablet (25 mg total) by mouth nightly 1 9 Active albuterol HFA (PROVENTIL HFA,VENTOLIN HFA,PROAIR HFA) 90 mcg/actuation inhalerIndication s:Acute Asthma Attack Inhale 1 puff as needed 1 9 Active buPROPion XL (WELLBUTRIN XL) 150 mg 24 hr tabletIndications :Anxiety with Depression Take 1 tablet (150 mg total) by mouth every morning 0 9 Active diclofenac sodium (VOLTAREN) 1 % gelIndications:Os teoarthritis of the Knee Apply 4 g topically as needed 9 Active BREO ELLIPTA 100-25 mcg/dose diskus inhalerIndication s:Maintenance Therapy for Asthma Inhale 1 puff nightly 1 9 Active hydroxychloroquin e (PLAQUENIL) 200 mg tabletIndications :sjogrens Take 1 tablet (200 mg total) by mouth 2 (two) times a day 0 9 Active levocetirizine (XYZAL) 5 mg tabletIndications :Allergic Rhinitis Take 5 mg by mouth as needed 1 9 Active INTROVALE 0.15 mg-30 mcg (91) per tabletIndications : Contraception Take 1 tablet by mouth nightly 5 9 Active ALPRAZolam (XANAX) 0.5 mg tablet Take 1 tablet (0.5 mg total) by mouth as needed for anxiety 1 Active amLODIPine (NORVASC) 5 mg tabletIndications :hypertension Take 1 tablet (5 mg total) by mouth every morning 0 Active Savella 50 mg tabletIndications :Fibromyalgia Take 0.5 tablets (25 mg total) by mouth 2 (two) times a day 0.5 tablet 1 Active EPINEPHrine 0.3 mg/0.3 mL auto-injection syringe ADMINISTER 0.3 MG IN THE MUSCLE 1 TIME 1 Active ibuprofen (ADVIL,MOTRIN) 200 mg tab/cap Take 3 tablet/capsule (600 mg total) by mouth every 6 (six) hours as needed for pain Active omeprazole (PriLOSEC) 20 mg capsuleIndication s:GERD Take 1 capsule (20 mg total) by mouth daily as needed Active acetaminophen (TYLENOL) 500 mg tablet Take 1 tablet (500 mg total) by mouth every 6 (six) hours as needed for pain 30 tablet 1 Active ipratropium-albut Mikey (COMBIVENT RESPIMAT) 20-100 mcg/actuation inhaler every 6 hours Active amlodipine-atorva statin (CADUET) 5-10 mg per tablet one a a day Active traMADoL (ULTRAM) 50 mg tablet 1 Active gabapentin (NEURONTIN) 300 mg capsuleIndication s:Neuropathic Pain Take 1 capsule (300 mg total) by mouth 3 (three) times a day Take 300mg (1 capsule) in the morning and at night for 3 days, then take 300mg in the morning, at midday, and at night. 90 capsule 2 1 Active Additional Information Patient not taking.Reported on 02/28/2023 methocarbamoL (ROBAXIN) 500 mg tabletIndications :Muscle Spasm Take 1 tablet (500 mg total) by mouth 3 (three) times a day as needed for muscle spasms 30 tablet 1 1 Active Additional Information Patient not taking.Reported on 02/28/2023 traZODone (DESYREL) 50 mg tablet TAKE 1 TABLET(50 MG) BY MOUTH EVERY NIGHT NEEDED FOR SLEEP 30 tablet 11 3 Active mirtazapine (REMERON) 15 mg tabletIndications :Insomnia Take 1 tablet (15 mg total) by mouth nightly 30 tablet 3 Active hydrOXYzine (ATARAX) 25 mg tablet TAKE 1 TO 2 TABLETS BY MOUTH EVERY NIGHT 1 HOUR BEFORE BEDTIME 60 tablet 5 3 Active Active Problems Problem Noted Date Diagnosed Date Psychophysiological insomnia 02/14/2022 Severe obstructive sleep apnea 02/09/2021 Overview (06/19/2021): DIAGNOSIS: Obstructive sleep apnea PROCEDURE PERFORMED: ([place] 06/07/21) Right hypoglossal nerve stimulator implantation Generator placement right chest wall Lead placement right intercostal muscle Sensation of chest tightness 02/27/2015 Gastroesophageal reflux disease 12/31/2013 Overview (10/11/2016): GERD - Gastro-esophageal reflux disease Asthma 12/31/2013 Overview (10/11/2016): Asthma Multiple environmental allergies 12/31/2013 Overview (10/11/2016): Multiple environmental allergies Immunizations Immunization Administration Dates Next Due Hep A, Adult 07/20/2014 Hep A, Unspecified 07/20/2014 Influenza, Quadrivalent, Payton l Culture-based MDCK, Antibiotic Free, Intramuscular 05/09/2020,04/21/2019 Influenza, Quadrivalent, Spl it, Intramuscular 05/07/2016 Influenza, Quadrivalent, Spl it, Preservative Free, Intramuscular 04/12/2020,07/18/2017,05/01/2015,05/17 Influenza, Trivalent, High D ose, Split, Preservative Free, Intramuscular 04/29/2018 Influenza, Trivalent, IM (MDV) 07/08/2017,2015 Influenza, Trivalent, Preser vative Free, Intramuscular 07/16/2017 Pneumococcal Polysaccharide PPV23 04/12/2020,09/2019 Tdap 07/20/2014 Surgical History Surgery Date Site/Laterality Comments LAPAROSCOPY 1992, 2000 x2 SEPTOPLASTY 07/07/1997 - 07/06/1998 ESOPHAGOGASTRODUODENOSCOPY 09/20/2020 WISDOM TOOTH EXTRACTION 07/07/1987 - 07/06/1988 DENTAL SURGERY 07/07/1985 - 07/06/1986 COLONOSCOPY 09/20/2020 BLADDER SURGERY 01/05/2020 - 02/04/2020 UPPER GASTROINTESTINAL ENDOSCOPY - 10/04/2020 DRUG INDUCED SLEEP ENDOSCOPY Medical History Medical History Date Comments Anxiety Arthritis Asthma Depression GERD (gastroesophageal reflux disease) Hiatal hernia Hypertension Pneumonia Seasonal allergies Sleep apnea No CPAP Motion sickness Sjogren's syndrome Fibromyalgia Family History Medical History Relation Name Comments Coronary artery disease Father Fami ly history of coronary artery disease - (Added by TW Conv) Heart attack Father Family history of myocardial infarction - (Added by TW Conv) Heart disease Father Mental illness Father Parkinsonism Father Parkinson's dis ease; Cause of : Parkinson's disease Arthritis Mother Diabetes type II Mother Diabetes me llitus type 2; Gout Mother Gout; Heart disease Mother Heart failure Mother Family history of congestive heart failure - (Added by TW Conv) Hypertension Mother Hypertension; / Family history of hypertension - (Added by TW Conv) Osteoarthritis Mother Osteoarthriti s; Stroke Mother Family history of cerebrovascular accident - (Added by TW Conv) Rheum arthritis Sister 1 Rheumatoid a rthritis; Breast cancer Sister 2 Cancer, breast ; Anesthesia problems Neg Hx Relation Name Status Comments Father Mother Alive Sister 1 Alive Sister 2 Alive Social History Tobacco Use Types Packs/Day Years Used Date Smoking Tobacco: Never Smokeless Tobacco: Never Alcohol Use Standard Drinks/Week Comments Yes 0 (1 standard drink = 0.6 oz pur e alcohol) Social AUDIT-C Answer Date Recorded Q1: How often do you have a drink containing alc ohol? 2-4 times a month 06/07/2021 Q2: How many drinks containi ng alcohol do you have on a typical day when you are drinking? 1 or 2 06/07/2021 Q3: How often do you have si x or more drinks on one occasion? Never 06/07/2021 Comments No Sex and Gender Information Value Date Recorded Sex Assigned at Not on file Legal Sex Female 10:08 PM PARTS BACK COUNTER MAN Gender Identity Not on file Sexual Orientation Not on file Obstetrics History Last Filed Vital Signs Vital Sign Reading Time Taken Comments Blood Pressure 143/77 02/28/2023 12:26 PM CDT Pulse 88 02/28/2023 12:26 PM CDT Temperature 36.6 C (97.8 F) 02/28/2023 12:26 PM CDT Respiratory Rate 16 06/07/2021 3:20 PM PARTS BACK COUNTER MAN Oxygen Saturation 98% 02/28/2023 12:26 PM CDT Inhaled Oxygen Concentration - - Weight 72.8 kg (160 lb 6.4 oz) 06/09/2024 9:31 A M PARTS BACK COUNTER MAN Height 165.1 cm (5' 5) 02/28/2023 12:26 PM CDT Body Mass Index 26.69 02/28/2023 12:26 PM CDT Plan of Treatment Health Maintenance Due Date Last Done Comments Cervical Cancer Screening 1970 Colon Cancer Screening-Colonoscopy 1970 Depression Screening 1970 Hepatitis C Screening 1970 Hepatitis B Screening 02/18/1988 Regular Well Visit/Exam 18-64 02/18/1988 Pneumococcal vaccine <65 (3 of 3 - PCV) 04/12/2021 04/12/2020, 02/07/2020 Covid-19 Vaccine (4 - 2023-2 5 season) 2024 03/29/2021, 09/21/2020, 08/29/2020 Breast Cancer Screening-Mammogram 06/20/2024 06/20/2023, 06/20/2023, 06/04/2022, Additional history exists DTaP/Tdap/Td Vaccine (2 - Td or Tdap) 07/20/2024 07/20/2014 Zoster Vaccine Completed 05/06/2022, 02/02/2022 Influenza Vaccine Completed 04/06/2024, , 04/19/2022, Additional history exists Medical Devices Implanted Type Area Wirer Device Identifier Shelf Expiration Date Model / Serial / Lot [employer] 4063 Inspire 3 Electrode Cuff Tunnel [place] Lead Neurostimulator Sterile - [id number] - [id number] Implanted:Qty: 1 on 06/07/2021 by Hamzah Ford MD at [facility] Right: Neck [employer] 11/07/2022 4063 / [id number] / Description:Patients with ge nerator Inspire Model 3028 can undergo MRI on the head and extremities if certain conditions and precautions are met [employer] 3028 Generator Neurostimulator - [id number] - [id number] Implanted:Qty: 1 on 06/07/2021 by Hamzah Ford MD at [facility] Right: Neck [employer] [id number] 02/07/2024 3028 / [id number] / Description:Patients with In spire Model 3028 can undergo MRI on the head and extremities if certain conditions and precautions are met [employer] 4340 Lead Neurostimulator Inspire Respiratory Sens Cycle Strl Lf - [id number] - [id number] Implanted:Qty: 1 on 06/07/2021 by Hamzah Ford MD at [facility] Right: Neck [employer] [id number] 12/11/2022 4340 / [id number] / Description:Patients with ge nerator Inspire Model 3028 can undergo MRI on the head and extremities if certain conditions and precautions are met Insurance [employer] OOS [employer] Care Teams Charter Boat Captain Relationship Specialty [place] [address] [place] [address] PCP - General Family Medicine 02/27/24
--- OUTSIDE RECORDS SUMMARY | 2024-11-28 12:08 | XMS_ITS ---
Author Organization [facility] Address [address] [place], [place] [id number] Care Team Providers Care Resident Athletic Trainer Name Role Phone Homa Frazier Primary Care Provider Erum Portillo Unavailable [phone] REASON FOR VISIT diclofenac PA Encounters Encounter Location Date Provider Diagnosis [facility] [address], [address] [place], [place] [id number] 11/10/2024 Erum Richards PLAN OF TREATMENT Next Appt Details Provider Name:Keturah Bullock, 04/11/2025 11:30:00 AM, [address], [address], [place], [place], [id number],
--- OUTSIDE RECORDS SUMMARY | 2024-11-28 12:08 | XMS_ITS | Encounter Summary ---
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 Gender Identity Not on file Sexual Orientation Not on file documented as of this encounter Plan of Treatment Not on file documented as of this encounter Procedures Procedure Name Priority Date/Time Associated Diagnosis Comments SCAN - RADIOLOGY/IMAGING 09/25/2021 documented in this encounter Results * SCAN - RADIOLOGY/IMAGING (09/25/2021) Anatomical Region Laterality Modality Other us Provider Scanning Final Result documented in this encounter Visit Diagnoses Not on filedocumented in this encounter Care Teams Firearms Assembly Supervisor Relationship Specialty [place] [address] [place] [address] PCP - General Internal Medicine 12/07/20 02/26/24 [place] [address], [address] [place] [address] PCP - General Family Medicine 02/27/24 documented as of this encounter
--- OUTSIDE RECORDS SUMMARY | 2024-11-28 12:08 | XMS_ITS | Patient Health Record ---
Author Organization [facility] ([address]) Address [address] [place] [address] Care Team Providers Care Retoucher Name Role Phone Chicas, Betzaida Primary Care Provider UnavailElizabeth Pruitt Unavailable [phone] Dragan East Unavailable [phone] [employer], Provider Unavailable Unavailab le Allergies Allergen (clinical drug ingredient) Drug/Non Drug Allergy documented on EMR Reaction Allergy Type Onset Date Status KETEK (uncoded) Dizziness Allergy Acti ve erythromycin Erythromycin Diarrhea Drug Allergy A ctive Reason For Referral No Information Medications Medication SIG (Take, Route, Frequency, Duration) Notes Start Date End Date Status HYDROXYCHLOROQUINE 200 mg 1 tab(s) orally once a day Active AMLODIPINE Active SAVELLA 12.5 mg 1 tab(s) orally 2 times a day for 2 day(s) Active Montelukast Sodium 10 MG 1 tab(s) orally once a day for 30 day(s) Active METOPROLOL SUCCINATE ER Active Montelukast Sodium 10 MG 1 tab(s) orally once a day for 30 day(s) Active AUVI-Q 0.3 mg as directed intramuscularly once for 1 day Active amLODIPine Besylate *Please revi ew and pick correct strength-formul ation from [employer] options. If intended option is not shown, discontinue and re-order from Quick Search* Active BREO ELLIPTA 100 mcg-25 mcg/inh 1 puff(s) inhaled once a day for 90 days Active Wellbutrin XL 150 MG 1 tab(s) orally Active LEVOCETIRIZINE DIHYDROCHLORIDE 5 mg 1 tab(s) orally once a day (in the evening) for 90 days Active Metoprolol Succinate ER *Please review and pick correct strength-formul ation from [employer] options. If intended option is not shown, discontinue and re-order from Quick Search* Active QNASL 80 mcg/inh 2 spray(s) intranasally once a day for 90 days Active Hydroxychloroquine Sulfate 200 MG 1 tab(s) orally once a day Active PATADAY 0.2% 1 gtt in each affected eye once a day for 10 day(s) Active Breo Ellipta 100 MCG-25 MCG/INH 1 PUFF(S) INHALED ONCE A DAY for 90 DAYS *Please review and pick correct strength-formul ation from [employer] options. If intended option is not shown, discontinue and re-order from Quick Search* Active ELIDEL 1% 1 xochilt applied topically 2 times a day for 90 days Active Savella 12.5 MG 1 tab(s) orally 2 times a day for 2 day(s) Active Auvi-Q 0.3 MG/0.3ML as directed intramuscularly once for 1 day Active PROAIR HFA CFC FREE 90 MCG/INH 2 PUFF(S) INHALED Q4-6 HOURS, PRN AND PER THE ASTHMA ACTION PLAN for 90 DAYS *Please review for potential replacement for e-prescription and drug interaction check* Active SIT (TRADITIONAL) variable per schedule SC per schedule Active Qnasl 80 MCG/ACT 2 spray(s) intranasally once a day for 90 days Active Levocetirizine Dihydrochloride 5 MG 1 tab(s) orally once a day (in the evening) for 90 days Active NASAL WASHES N/A DIRECTED INTRANASALLY NEEDED for 30 *Please review for potential replacement for e-prescription and drug interaction check* Active Pataday 0.2 % 1 gtt in each affected eye once a day for 10 day(s) Active Elidel 1 % 1 xochilt applied topically 2 times a day for 90 days Active MONTELUKAST SODIUM 10 mg 1 tab(s) orally once a day for 30 day(s) Active FAMOTIDINE 40 mg 1 tab(s) orally once a day (at bedtime) Active EPIPEN 2-DAVID 0.3 mg 0.3 mg intramuscularly once for 30 day(s) Active EpiPen 2-David 0.3 MG/0.3ML 0.3 mg intramuscularly once for 30 day(s) Active MONTELUKAST SODIUM 10 mg 1 tab(s) orally once a day for 30 day(s) Active ALBUTEROL (EQV-PROAIR HFA) 90 MCG/INH INHALE 2 PUFFS BY MOUTH EVERY 4 TO 6 HOURS NEEDED for 50 *Please review for potential replacement for e-prescription and drug interaction check* Not-Taking WELLBUTRIN XL 150 mg/24 hours 1 tab(s) orally Active Albuterol Sulfate HFA 108 (90 Base) MCG/ACT 1 puff as needed Inhalation every 4 hrs for 30 days 4 Active Famotidine 40 MG 1 tab(s) orally once a day (at bedtime) Active Immunizations Vaccine Route Administration Date Status Comme nts Flucelvax IM Intramuscular 04/21/2019 Administered Fluzone Quadrivalent Unknown 07/08/2017 Administered Fluzone Quadrivalent Unknown 04/22/2016 Administered NOC Flucelevax Quadrivalent Unknown 05/09/2020 Administered NOC Fluzone Quadrivalent Unknown 09/29/2018 Refused Pneumovax 23 Unknown 02/07/2020 Administered Social History Tobacco Use: Social History Observation Description Date Details (start date - stop date) Never Smoker NA - NA Smoking Smart Form: Question Answer Notes Are you a: never smoker Problems Problem Type SNOMED Code ICD Code Onset Dates Problem Status W/U Status Risk Notes Problem Essential hypertension (36523425) HTN [Hypertension] (401.9) Active confirmed Problem Obstructive sleep apnea syndrome (disorder) (83556709) Obstructive sleep apnea (adult) (pediatric) (G47.33) Active confirmed Problem Chronic allergic conjunctivitis (96279491) Other chronic allergic conjunctivitis (H10.45) Active confirmed Problem Essential hypertension (76583328) Essential (primary) hypertension (I10) Active confirmed Problem Allergic rhinitis caused by pollen (disorder) (01131695) Allergic rhinitis due to pollen (J30.1) Active confirmed Problem Allergic rhinitis caused by animal hair and dander (736106157261399) Allergic rhinitis due to animal (cat) (dog) hair and dander (J30.81) Active confirmed Problem Allergic rhinitis (09744470) Other allergic rhinitis (J30.89) Active confirmed Problem Uncomplicated moderate persistent asthma (416160311) Moderate persistent asthma, uncomplicated (J45.40) Active confirmed Problem Atopic dermatitis (63457982) Atopic dermatitis, unspecified (L20.9) Active confirmed Problem Ingestion dermatitis caused by food (670608752) Dermatitis due to ingested food (L27.2) Active confirmed Problem Dermatitis (946101699) Dermatitis, unspecified (L30.9) Active confirmed Problem Angioneurotic edema (62411962) Angioneurotic edema, subsequent encounter (T78.3XXD) Active confirmed Problem Allergic rhinitis caused by pollen (disorder) (97426580) Allergic rhinitis due to pollen (J30.1) Active confirmed Problem Allergic rhinitis caused by animal hair and dander (230449858641195) Allergic rhinitis due to animal (cat) (dog) hair and dander (J30.81) Active confirmed Problem Allergic rhinitis (26232386) Other allergic rhinitis (J30.89) Active confirmed Problem Angioneurotic edema (28750626) Angioneurotic edema, initial encounter (T78.3XXA) Active confirmed Problem Chronic allergic conjunctivitis (49477838) Other chronic allergic conjunctivitis (H10.45) Active confirmed Problem Essential hypertension (44256501) Essential (primary) hypertension (I10) Active confirmed Encounters Encounter Location Date Provider Diagnosis [facility] [address] [place] [phone] 01/26/2024 Elizabeth Cook Moderate persistent asthma, uncomplicated J45.[address] [address] 06/07/2024 Elizabeth Cook Allergic rhinitis du e to pollen J30.1 [facility] [address] [place] [phone] 12/02/2023 Elizabeth Cook Allergic rhinitis du e to pollen J30.1 ; Allergic rhinitis due to animal (cat) (dog) hair and dander J30.81 ; Other allergic rhinitis J30.89 and Other chronic allergic conjunctivitis H10.[address] [address] 12/29/2023 Elizabeth Cook Allergic rhinitis du e to pollen J30.1 ; Allergic rhinitis due to animal (cat) (dog) hair and dander J30.81 ; Other allergic rhinitis J30.89 and Other chronic allergic conjunctivitis H10.45 [facility] [address] [place] [address] [employer] [address] [place] [phone] 01/26/2024 Elizabeth Cook Allergic rhinitis du e to pollen J30.1 ; Allergic rhinitis due to animal (cat) (dog) hair and dander J30.81 ; Other allergic rhinitis J30.89 and Other chronic allergic conjunctivitis H10.45 [facility] [address] [place] [address] [employer] [address] [place] [phone] 02/25/2024 Elizabeth Cook Allergic rhinitis du e to pollen J30.1 ; Allergic rhinitis due to animal (cat) (dog) hair and dander J30.81 ; Other allergic rhinitis J30.89 and Other chronic allergic conjunctivitis H10.45 [facility] [address] [place] [address] [employer] [address] [place] [phone] 03/25/2024 Elizabeth Cook Allergic rhinitis du e to pollen J30.1 ; Allergic rhinitis due to animal (cat) (dog) hair and dander J30.81 ; Other allergic rhinitis J30.89 and Other chronic allergic conjunctivitis H10.45 [facility] [address] [place] [address] [employer] [address] [place] [phone] 04/27/2024 Elizabeth Cook Allergic rhinitis du e to pollen J30.1 ; Allergic rhinitis due to animal (cat) (dog) hair and dander J30.81 ; Other allergic rhinitis J30.89 and Other chronic allergic conjunctivitis H10.45 [facility] [address] [place] [address] [employer] [address] [place] [phone] 05/25/2024 Elizabeth Cook Allergic rhinitis du e to pollen J30.1 ; Allergic rhinitis due to animal (cat) (dog) hair and dander J30.81 ; Other allergic rhinitis J30.89 and Other chronic allergic conjunctivitis H10.45 [facility] [address] [place], [place] [address] [address] [place] [phone] 07/13/2024 Elizabeth Cook Allergic rhinitis du e to pollen J30.1 ; Allergic rhinitis due to animal (cat) (dog) hair and dander J30.81 ; Other allergic rhinitis J30.89 and Other chronic allergic conjunctivitis H10.45 [facility] [address] [place] [phone] 07/20/2024 Elizabeth Cook Allergic rhinitis du e to pollen J30.1 ; Allergic rhinitis due to animal (cat) (dog) hair and dander J30.81 ; Other allergic rhinitis J30.89 and Other chronic allergic conjunctivitis H10.45 [facility] [address] [place] [phone] 07/27/2024 Elizabeth Cook Allergic rhinitis du e to pollen J30.1 ; Allergic rhinitis due to animal (cat) (dog) hair and dander J30.81 ; Other allergic rhinitis J30.89 and Other chronic allergic conjunctivitis H10.45 [facility] [address] [place] [phone] 08/30/2024 Elizabeth Cook Allergic rhinitis du e to pollen J30.1 ; Allergic rhinitis due to animal (cat) (dog) hair and dander J30.81 ; Other allergic rhinitis J30.89 and Other chronic allergic conjunctivitis H10.45 [facility] [address] [place] [phone] 09/30/2024 Elizabeth Cook Allergic rhinitis du e to pollen J30.1 ; Allergic rhinitis due to animal (cat) (dog) hair and dander J30.81 ; Other allergic rhinitis J30.89 and Other chronic allergic conjunctivitis H10.45 [facility] [address] [place] [phone] 11/01/2024 Elizabeth Cook Allergic rhinitis du e to pollen J30.1 ; Allergic rhinitis due to animal (cat) (dog) hair and dander J30.81 ; Other allergic rhinitis J30.89 and Other chronic allergic conjunctivitis H10.[address] [phone] 12/20/2023 Provider TIMUR-Donna Allergic rhinitis due to pollen J30.1 Assessments Encounter Date Diagnosis (ICD Code) Assessment Notes Treatment Notes Treatment Clinical Notes Section Notes 12/02/2023 Allergic rhinitis due to pollen (ICD-10 - J30.1) 12/20/2023 Allergic rhinitis due to pollen (ICD-10 - J30.1) 12/29/2023 Allergic rhinitis due to pollen (ICD-10 - J30.1) 01/26/2024 Allergic rhinitis due to pollen (ICD-10 - J30.1) 01/26/2024 Moderate persistent asthma, uncomplicated (ICD-10 - J45.40) 02/25/2024 Allergic rhinitis due to pollen (ICD-10 - J30.1) 03/25/2024 Allergic rhinitis due to pollen (ICD-10 - J30.1) 04/27/2024 Allergic rhinitis due to pollen (ICD-10 - J30.1) 05/25/2024 Allergic rhinitis due to pollen (ICD-10 - J30.1) 06/07/2024 Allergic rhinitis due to pollen (ICD-10 - J30.1) 07/13/2024 Allergic rhinitis due to pollen (ICD-10 - J30.1) 07/20/2024 Allergic rhinitis due to pollen (ICD-10 - J30.1) 07/27/2024 Allergic rhinitis due to pollen (ICD-10 - J30.1) 08/30/2024 Allergic rhinitis due to pollen (ICD-10 - J30.1) 09/30/2024 Allergic rhinitis due to pollen (ICD-10 - J30.1) 11/01/2024 Allergic rhinitis due to pollen (ICD-10 - J30.1) 11/01/2024 Allergic rhinitis due to animal (cat) (dog) hair and dander (ICD-10 - J30.81) 09/30/2024 Allergic rhinitis due to animal (cat) (dog) hair and dander (ICD-10 - J30.81) 08/30/2024 Allergic rhinitis due to animal (cat) (dog) hair and dander (ICD-10 - J30.81) 07/27/2024 Allergic rhinitis due to animal (cat) (dog) hair and dander (ICD-10 - J30.81) 07/20/2024 Allergic rhinitis due to animal (cat) (dog) hair and dander (ICD-10 - J30.81) 07/13/2024 Allergic rhinitis due to animal (cat) (dog) hair and dander (ICD-10 - J30.81) 05/25/2024 Allergic rhinitis due to animal (cat) (dog) hair and dander (ICD-10 - J30.81) 04/27/2024 Allergic rhinitis due to animal (cat) (dog) hair and dander (ICD-10 - J30.81) 03/25/2024 Allergic rhinitis due to animal (cat) (dog) hair and dander (ICD-10 - J30.81) 02/25/2024 Allergic rhinitis due to animal (cat) (dog) hair and dander (ICD-10 - J30.81) 01/26/2024 Allergic rhinitis due to animal (cat) (dog) hair and dander (ICD-10 - J30.81) 12/29/2023 Allergic rhinitis due to animal (cat) (dog) hair and dander (ICD-10 - J30.81) 12/02/2023 Allergic rhinitis due to animal (cat) (dog) hair and dander (ICD-10 - J30.81) 12/02/2023 Other allergic rhinitis (ICD-10 - J30.89) 12/29/2023 Other allergic rhinitis (ICD-10 - J30.89) 01/26/2024 Other allergic rhinitis (ICD-10 - J30.89) 02/25/2024 Other allergic rhinitis (ICD-10 - J30.89) 03/25/2024 Other allergic rhinitis (ICD-10 - J30.89) 04/27/2024 Other allergic rhinitis (ICD-10 - J30.89) 05/25/2024 Other allergic rhinitis (ICD-10 - J30.89) 07/13/2024 Other allergic rhinitis (ICD-10 - J30.89) 07/20/2024 Other allergic rhinitis (ICD-10 - J30.89) 07/27/2024 Other allergic rhinitis (ICD-10 - J30.89) 08/30/2024 Other allergic rhinitis (ICD-10 - J30.89) 09/30/2024 Other allergic rhinitis (ICD-10 - J30.89) 11/01/2024 Other allergic rhinitis (ICD-10 - J30.89) 11/01/2024 Other chronic allergic conjunctivitis (ICD-10 - H10.45) 09/30/2024 Other chronic allergic conjunctivitis (ICD-10 - H10.45) 08/30/2024 Other chronic allergic conjunctivitis (ICD-10 - H10.45) 07/27/2024 Other chronic allergic conjunctivitis (ICD-10 - H10.45) 07/20/2024 Other chronic allergic conjunctivitis (ICD-10 - H10.45) 07/13/2024 Other chronic allergic conjunctivitis (ICD-10 - H10.45) 05/25/2024 Other chronic allergic conjunctivitis (ICD-10 - H10.45) 04/27/2024 Other chronic allergic conjunctivitis (ICD-10 - H10.45) 03/25/2024 Other chronic allergic conjunctivitis (ICD-10 - H10.45) 02/25/2024 Other chronic allergic conjunctivitis (ICD-10 - H10.45) 01/26/2024 Other chronic allergic conjunctivitis (ICD-10 - H10.45) 12/29/2023 Other chronic allergic conjunctivitis (ICD-10 - H10.45) 12/02/2023 Other chronic allergic conjunctivitis (ICD-10 - H10.45) Plan Of Treatment Pending Test Test Name Order Date Spirometry 02/20/2022 Next Appt Details Provider Name:Elizabeth sargent, 11/30/2024 09:30:00 AM, [address] [facility], [address], [place], [address], Insurance Providers Payer Name Payer Address Payer Phone Subscriber Number Group Number Insured Name Patient Relationship to Insured Coverage Start Date Coverage End Date [facility] [address] [place] [address] [id number] Maximus Marroquin Spouse - patient is the spouse of the insured Medical (General) History Medical History History ICD Code Hypertension Allergic rhinitis Asthma Sjogren's disease Fibromyalgia Surgical History Surgery Date(Month/Year) laparoscopy 1993, 1996 2001 Septoplasty 1996 [facility] 06/2021 Hospitalization History Reason Date(Month/Year) pneumonia 1975
--- OUTSIDE RECORDS SUMMARY | 2024-11-28 12:08 | XMS_ITS | Referral Summary ---
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 Gender Identity Not on file Sexual Orientation Not on file Last Filed Vital Signs Vital Sign Reading Time Taken Comments Blood Pressure 143/77 02/28/2023 12:26 PM CDT Pulse 88 02/28/2023 12:26 PM CDT Temperature 36.6 C (97.8 F) 02/28/2023 12:26 PM CDT Respiratory Rate 16 06/07/2021 3:20 PM TOWER EXCAVATOR OPERATOR Oxygen Saturation 98% 02/28/2023 12:26 PM CDT Inhaled Oxygen Concentration - - Weight 72.8 kg (160 lb 6.4 oz) 06/09/2024 9:31 A M TOWER EXCAVATOR OPERATOR Height 165.1 cm (5' 5) 02/28/2023 12:26 PM CDT Body Mass Index 26.69 02/28/2023 12:26 PM CDT Plan of Treatment Not on file Medical Devices Implanted Type Area Flake Drier Device Identifier Shelf Expiration Date Model / Serial / Lot [employer] 4063 Inspire 3 Electrode Cuff Tunnel Cortez Lead Neurostimulator Sterile - [id number] - [id number] Implanted:Qty: 1 on 06/07/2021 by Hamzah Ford MD at [facility] Right: Neck [employer] 11/07/2022 4063 / [id number] / Description:Patients with ge nerator Inspire Model 3028 can undergo MRI on the head and extremities if certain conditions and precautions are met [employer] 3028 Generator Neurostimulator - [id number] - [id number] Implanted:Qty: 1 on 06/07/2021 by Hamzah Ford MD at [facility] Right: Neck [employer] [id number] 02/07/2024 3028 / [id number] / Description:Patients with In spire Model 3028 can undergo MRI on the head and extremities if certain conditions and precautions are met [employer] 4340 Lead Neurostimulator Inspire Respiratory Sens Cycle Strl Lf - [id number] - [id number] Implanted:Qty: 1 on 06/07/2021 by Hamzah Ford MD at [facility] Right: Neck [employer] [id number] 12/11/2022 4340 / [id number] / Description:Patients with ge nerator Inspire Model 3028 can undergo MRI on the head and extremities if certain conditions and precautions are met Insurance [employer] BLUE ACCESS OOS Care Teams Exhibit Specialist Relationship Specialty [place] [address] [address], [address] [place] [address] PCP - General Family Medicine 02/27/24
--- OUTSIDE RECORDS SUMMARY | 2024-11-28 12:09 | XMS_ITS ---
Author Organization [facility] Address [address] [place], [place] [address] Care Team Providers Care Analysis Director Name Role Phone Homa Frazier Primary Care Provider Erum Poritllo [phone] MEDICATIONS Medication SIG (Take, Route, Frequency, Duration) Notes Start Date End Date Status Diclofenac Sodium Solution 20 mg/pump (2%) 2 pump(s) applied topically to affected area as needed 2 times a day for 30 days 11/08/2024 Active Encounters Encounter Location Date Provider Diagnosis [facility] [address], [address] [place], [place] [id number] 11/08/2024 Erum Richards PLAN OF TREATMENT Medication Medication Name Sig Start Date Stop Date Notes Diclofenac Sodium Solution 2 0 mg/pump (2%) 2 pump(s) applied topically to affected area as needed 2 times a day for 30 days 11/08/2024 Next Appt Details Provider Name:Keturah Bullock, 04/11/2025 11:30:00 AM, [address], [address], [place], [place], [phone],
--- OUTSIDE RECORDS SUMMARY | 2024-11-28 12:09 | XMS_ITS | Patient Health Record ---
Author Organization [facility] Address [address] [facility] [address] [id number] Care Team Providers Care Crystal Flat Grinder Name Role Phone Homa Frazier Primary Care Provider Erum Portillo Unavailable [phone] Keturah Bullock Unavailable [phone] ALLERGIES Allergen (clinical drug ingredient) Drug/Non Drug Allergy documented on EMR Reaction Allergy Type Onset Date Status erythromycin Unknown Drug Allergy Acti ve benazepril Benzapril (uncoded) Unknown Allergy Active RESULTS Component Value Reference Range Notes CBC With Differential/Platel et Reviewed date:12/24/2023 08:32:22 PM Interpretation: Performing Lab:[facility], [address] [facility], [place], Phone - [phone], Director - Ricadelia Notes/Report: WBC 8.5 3.4-10.8 x10E3/uL RBC 4.69 3.77-5.28 x10E6/uL Hemoglobin 13.9 11.1-15.9 g/dL Hematocrit 42.6 34.0-46.6 % MCV 91 79-97 fL MCH 29.6 26.6-33.0 pg MCHC 32.6 31.5-35.7 g/dL RDW 12.7 11.7-15.4 % Platelets 276 150-450 x10E3/uL Neutrophils 64 Not Estab. % Lymphs 27 Not Estab. % Monocytes 6 Not Estab. % Eos 2 Not Estab. % Basos 1 Not Estab. % Immature Cells Neutrophils (Absolute) 5.4 1.4-7.0 x10E3/uL Lymphs (Absolute) 2.3 0.7-3.1 x10E3/uL Monocytes(Absolute) 0.5 0.1-0.9 x10E3/uL Eos (Absolute) 0.2 0.0-0.4 x10E3/uL Baso (Absolute) 0.0 0.0-0.2 x10E3/uL Immature Granulocytes 0 Not Estab. % Immature Grans (Abs) 0.0 0.0-0.1 x10E3/uL NRBC Hematology Comments: Sed Rate - Westergren Reviewed date:12/24/2023 08:32:22 PM Interpretation: Performing Lab:[facility], Phone - [phone], Director - [facility] Notes/Report: Sedimentation Rate-Westergren 2 0-40 mm/hr C-Reactive Protein, Quant Reviewed date:12/24/2023 08:32:22 PM Interpretation: Performing Lab:[facility] [place], [address] [place] [address], Phone - [phone], Director - [facility] Notes/Report: C-Reactive Protein, Quant 6 0-10 mg/L Comp. Metabolic Panel (14) Reviewed date:12/24/2023 08:32:22 PM Interpretation: Performing Lab:[facility] [address], Phone - [phone], Director - [facility] Notes/Report: Glucose 80 70-99 mg/dL BUN 9 6-24 mg/dL Creatinine 0.85 0.57-1.00 mg/dL eGFR 82 >59 mL/min/1.73 BUN/Creatinine Ratio 11 9-23 Sodium 137 134-144 mmol/L Potassium 4.0 3.5-5.2 mmol/L Chloride 102 96-106 mmol/L Carbon Dioxide, Total 24 20-29 mmol/L Calcium 8.8 8.7-10.2 mg/dL Protein, Total 6.4 6.0-8.5 g/dL Albumin 3.9 3.8-4.9 g/dL Globulin, Total 2.5 1.5-4.5 g/dL Bilirubin, Total 0.3 0.0-1.2 mg/dL Alkaline Phosphatase 54 44-121 IU/L AST (SGOT) 14 0-40 IU/L ALT (SGPT) 13 0-32 IU/L Complement C4, Serum Reviewed date:06/04/2024 06:04:50 PM Interpretation: [facility]forming [facility], [address] [place] [address], Phone - [phone], Director - Alexandr Notes/Report: Complement C4, Serum 16 12-38 mg/dL CBC With Differential/Platel et Reviewed date:06/04/2024 06:04:50 PM Interpretation: Performing Lab:[facility], [address] [facility], Phone - [phone], Director - Alexandr Notes/Report: WBC 12.7 3.4-10.8 x10E3/uL Effective June 07, 2024 profile [id number] WBC will be made non-orderable as a stand-alone order code. RBC 4.82 3.77-5.28 x10E6/uL Hemoglobin 14.5 11.1-15.9 g/dL Hematocrit 43.7 34.0-46.6 % MCV 91 79-97 fL MCH 30.1 26.6-33.0 pg MCHC 33.2 31.5-35.7 g/dL RDW 12.6 11.7-15.4 % Platelets 344 150-450 x10E3/uL Neutrophils 53 Not Estab. % Lymphs 35 Not Estab. % Monocytes 8 Not Estab. % Eos 2 Not Estab. % Basos 1 Not Estab. % Immature Cells Neutrophils (Absolute) 6.8 1.4-7.0 x10E3/uL Lymphs (Absolute) 4.4 0.7-3.1 x10E3/uL Monocytes(Absolute) 1.1 0.1-0.9 x10E3/uL Eos (Absolute) 0.2 0.0-0.4 x10E3/uL Baso (Absolute) 0.1 0.0-0.2 x10E3/uL Immature Granulocytes 1 Not Estab. % Immature Grans (Abs) 0.1 0.0-0.1 x10E3/uL NRBC Hematology Comments: Sed Rate - Westergren Reviewed date:06/04/2024 06:04:50 PM Interpretation: Performing Lab:[facility] [place], [address] [facility], [place], Phone - [phone], Director - Alexandr Notes/Report: Sedimentation Rate-Westergren 4 0-40 mm/hr Complement C3, Serum Reviewed date:06/04/2024 06:04:50 PM Interpretation: Performing Lab:[address], Phone - [phone], [facility] Notes/Report: Complement C3, Serum 108 82-167 mg/dL Rheumatoid Arthritis Factor Reviewed date:06/04/2024 06:04:50 PM Interpretation: Performing Lab:[address], Phone - [phone], [facility] Notes/Report: Rheumatoid Factor (RF) <10.0 <14.0 IU/mL C-Reactive Protein, Quant Reviewed date:06/04/2024 06:04:50 PM Interpretation: Performing Lab:[address], Phone - [phone], [facility] Notes/Report: C-Reactive Protein, Quant 2 0-10 mg/L CCP IgG Antibodies Reviewed date:06/04/2024 06:04:50 PM Interpretation: Performing Lab:[address], Phone - [phone], [facility] Notes/Report: Anti-CCP Ab, IgG/IgA 5 0-19 units Negative <20 Weak positive 20 - 39 Moderate positive 40 - 59 Strong positive >59 Comp. Metabolic Panel (14) Reviewed date:06/04/2024 06:04:50 PM Interpretation: Performing Lab:[address], Phone - [phone], [facility] Notes/Report: Glucose 78 70-99 mg/dL BUN 15 6-24 mg/dL Creatinine 0.87 0.57-1.00 mg/dL eGFR 79 >59 mL/min/1.73 BUN/Creatinine Ratio 17 9-23 Sodium 141 134-144 mmol/L Potassium 3.7 3.5-5.2 mmol/L Chloride 103 96-106 mmol/L Carbon Dioxide, Total 25 20-29 mmol/L Calcium 9.0 8.7-10.2 mg/dL Protein, Total 6.7 6.0-8.5 g/dL Albumin 4.2 3.8-4.9 g/dL Globulin, Total 2.5 1.5-4.5 g/dL Bilirubin, Total 0.3 0.0-1.2 mg/dL Alkaline Phosphatase 69 44-121 IU/L AST (SGOT) 15 0-40 IU/L ALT (SGPT) 17 0-32 IU/L SPEPW/Interpretation w/refle x Reviewed date:06/04/2024 06:04:50 PM Interpretation: Performing Lab:[facility], [address] [place] [address], Phone - [phone], Director - [facility] Notes/Report: Albumin 3.8 2.9-4.4 g/dL Zhsjh-6-Nxqvcvkc 0.1 0.0-0.4 g/dL Foopm-3-Fkxjeqcu 0.7 0.4-1.0 g/dL Beta Globulin 1.0 0.7-1.3 g/dL Gamma Globulin 1.1 0.4-1.8 g/dL M-Erwin Not Observed Not Observed g/dL Globulin, Total 2.9 2.2-3.9 g/dL A/G Ratio 1.3 0.7-1.7 Please note: Protein electrophoresis scan will follow via computer, mail, or photographer assistant delivery. Interpretation(See Below) The SPE pattern appears unremarkable. Evidence of monoclonal protein is not apparent. PDF . PDF Report Reviewed date:06/04/2024 06:04:50 PM Interpretation: Performing Lab:[facility], [address] [place] [address], Phone - [phone], Director - [facility] Notes/Report: PDF Report1 LCLS CBC With Differential/Platel et Reviewed date:11/09/2024 03:24:37 PM Interpretation: Performing Lab[facility], [address] [place] [address], Phone - [phone], Director - [facility] Notes/Report: WBC 9.9 3.4-10.8 x10E3/uL RBC 4.97 3.77-5.28 x10E6/uL Hemoglobin 14.5 11.1-15.9 g/dL Hematocrit 44.4 34.0-46.6 % MCV 89 79-97 fL MCH 29.2 26.6-33.0 pg MCHC 32.7 31.5-35.7 g/dL RDW 12.5 11.7-15.4 % Platelets 313 150-450 x10E3/uL Neutrophils 56 Not Estab. % Lymphs 32 Not Estab. % Monocytes 8 Not Estab. % Eos 3 Not Estab. % Basos 1 Not Estab. % Immature Cells Neutrophils (Absolute) 5.6 1.4-7.0 x10E3/uL Lymphs (Absolute) 3.1 0.7-3.1 x10E3/uL Monocytes(Absolute) 0.8 0.1-0.9 x10E3/uL Eos (Absolute) 0.3 0.0-0.4 x10E3/uL Baso (Absolute) 0.1 0.0-0.2 x10E3/uL Immature Granulocytes 0 Not Estab. % Immature Grans (Abs) 0.0 0.0-0.1 x10E3/uL NRBC Hematology Comments: Sed Rate - Westergren Reviewed date:11/09/2024 03:24:37 PM Interpretation: Performing Lab:[facility] [address], Phone - [phone], Director - [facility] Notes/Report: [facility] 16 0-40 mm/hr Rheumatoid Arthritis Factor Reviewed date:11/09/2024 03:24:37 PM Interpretation: Performing Lab:[facility] [address], Phone - [phone], Director - [facility] Notes/Report: Rheumatoid Factor (RF) <10.0 <14.0 IU/mL C-Reactive Protein, Quant Reviewed date:11/09/2024 03:24:37 PM Interpretation: Performing Lab:[facility] [address], Phone - [phone], Director - [facility] Notes/Report: C-Reactive Protein, Quant 7 0-10 mg/L CCP IgG Antibodies Reviewed date:11/09/2024 03:24:37 PM Interpretation: Performing Lab:[facility] [address], Phone - [phone], Director - [facility] Notes/Report: Anti-CCP Ab, IgG/IgA 6 0-19 units Negative <20 Weak positive 20 - 39 Moderate positive 40 - 59 Strong positive >59 Comp. Metabolic Panel (14) Reviewed date:11/09/2024 03:24:37 PM Interpretation: Performing Lab:[facility] [place], [address] [facility], Phone - [phone], Director - [facility] Notes/Report: Glucose 114 70-99 mg/dL BUN 11 6-24 mg/dL Creatinine 0.86 0.57-1.00 mg/dL eGFR 80 >59 mL/min/1.73 BUN/Creatinine Ratio 13 9-23 Sodium 139 134-144 mmol/L Potassium 3.8 3.5-5.2 mmol/L Chloride 104 96-106 mmol/L Carbon Dioxide, Total 22 20-29 mmol/L Calcium 9.3 8.7-10.2 mg/dL Protein, Total 6.8 6.0-8.5 g/dL Albumin 4.3 3.8-4.9 g/dL Globulin, Total 2.5 1.5-4.5 g/dL Bilirubin, Total 0.2 0.0-1.2 mg/dL Alkaline Phosphatase 75 44-121 IU/L AST (SGOT) 21 0-40 IU/L ALT (SGPT) 19 0-32 IU/L VITAMIN D, 25-HYDROXY, LC/MS /MS Reviewed date:11/09/2024 03:27:26 PM Interpretation: Performing Lab:[facility] [place], [address] [facility], Phone - [phone], Director - [facility] Notes/Report: Vitamin D, 25-Hydroxy 17.3 30.0-100.0 ng/mL Vitamin D deficiency has been defined by the [place] of Medicine and an Endocrine Society practice guideline as a level of serum 25-OH vitamin D less than 20 ng/mL (1,2). The Endocrine Society went on to further define vitamin D insufficiency as a level between 21 and 29 ng/mL (2). 1. IOM ([place] of Medicine). 2010. Dietary reference intakes for calcium and D. [place]: The National Academies Press. 2. Eloisa MF, Mary Grace CHING, Olivia LUNA, et al. Evaluation, treatment, and prevention of vitamin D deficiency: an Endocrine Society clinical practice guideline. JCEM. 2010; 96(7):1911-30. REASON FOR REFERRAL No Information MEDICATIONS Medication SIG (Take, Route, Frequency, Duration) Notes Start Date End Date Status hydroxychloroquine 200 mg 1 and 1/2 tab( s) orally once a day Unknown Voltaren Gel - for lower body joint 1% APPLY TOPICALLY TO LOWER BACK AND KNEES, APPLY 4 GRAMS THREE TIMES DAILY NEEDED Unknown TiZANidine Hydrochloride 2 mg 1-2 tab(s) orally PRN for 30 days 05/31/2024 Unknown buPROPion 150 mg/24 hours 1 tab(s) orall y every 24 hours Unknown Savella 50 mg TAKE 1 TABLET BY MOUTH TWICE DAILY for 90 Unknown amlodipine besylate 5 mg one a a day Unknown metoprolol 25 mg 1 tab(s) orally once a day Unknown albuterol-ipratropium CFC free 100 mcg-20 mcg/inh 1 puff(s) inhaled 4 times a day Unknown busPIRone 5 mg 1 tab(s) orally 2 times a day Unknown ergocalciferol 50,000 intl units 1 cap(s) orally once a week for 28 days 11/09/2024 Active Estradiol Unknown Buspar 7.5mg twice a day Unknown Diclofenac Sodium Solution 20 mg/pump (2%) 2 pump(s) applied topically to affected area as needed 2 times a day for 30 days 11/08/2024 Unknown SOCIAL HISTORY Tobacco Use: Social History Observation Description Date Details (start date - stop date) Never Smoker NA - NA Sex Assigned At : Social History Observation Description Sex Assigned At Unknown Tobacco Use: Question Answer Notes Smoking Status nonsmoker PROBLEMS Problem Type ICD Code Onset Dates Problem Status W/U Status Risk SNOMED Code Notes Problem Elevated C-reactive protein (CRP) (R79.82) Active confirmed 365090998 Problem Other correction (current) drug therapy (Z79.899) Active confirmed 315813848 Problem Vitamin D deficiency (E55.9) Active confirmed 69003277 Problem Fibromyalgia (M79.7) Active confirmed 54975463 Problem Essential (primary) hypertension (I10) Active confirmed Problem Sjogren's disease (M35.00) Active confirmed 82065441 Problem Primary insomnia (F51.01) Active confirmed 6479922 Problem Never smoked cigarettes (Z78.9) Active confirmed 883970175 Problem Bursitis (M71.9) Active confirmed 35387 003 VITAL SIGNS Heart Rate 85 /min 11/08/2024 Blood pressure diastolic 85 mm Hg 11/08/2024 Height 65 in 11/08/2024 Blood pressure systolic 149 mm Hg 11/08/2024 Weight 162 lbs 11/08/2024 BMI 26.96 kg/m2 11/08/2024 Encounters Encounter Location Date Provider [facility] [address] [place] [phone] 12/23/2023 Keturah Kobe Fibromyalgia M79.7 ; Sjogren's disease M35.00 ; Elevated C-reactive protein (CRP) R79.82 ; Other ocean transportation intermediary (current) drug therapy Z79.899 ; Bursitis M71.9 ; Rash R21 ; Essential (primary) hypertension I10 and Left hip pain M25.552 [facility] [address] [id number] 04/19/2024 Keturah Bullock [facility] [address] [place] [id number] 05/31/2024 Keturah Kobe Fibromyalgia M79.7 ; Sjogren's disease M35.00 ; Elevated C-reactive protein (CRP) R79.82 ; Other ocean transportation intermediary (current) drug therapy Z79.899 ; Rib pain on left side R07.81 ; Rash R21 ; Bursitis M71.9 ; Left hip pain M25.552 and Essential (primary) hypertension I10 [facility] [address] [place] [id number] 08/31/2024 Keturah Bullock [facility] [address] [place] [id number] 09/28/2024 Keturah Bullock [facility] [address] [place] [address], [address] [id number] 11/08/2024 Keturah Kobe Fibromyalgia M79.7 ; Sjogren's disease M35.00 ; Vitamin D deficiency E55.9 ; Other ocean transportation intermediary (current) drug therapy Z79.899 ; Elevated C-reactive protein (CRP) R79.82 ; Rib pain on left side R07.81 ; Rash R21 ; Bursitis M71.9 ; Left hip pain M25.552 and Essential (primary) hypertension I10 [facility] [address] [facility], [address] [id number] 02/27/2024 Erum Richards [facility] [address] [facility], [address] [id number] 05/31/2024 Erumfrancisco Richards [facility] [address] [facility], [address] [id number] 11/08/2024 Erumfrancisco Richards [facility] [address] [facility], [address] [id number] 11/09/2024 Erum Richards Vitamin D deficiency E55.9 [facility] [address] [facility], [address] [phone] 11/10/2024 Erum Richards [facility] [address] [facility], [address] [id number] 07/02/2024 Erum Richards [facility] [address] [place] [address], [address] [id number] 07/02/2024 Erum Richards ASSESSMENTS Encounter Date Diagnosis Assessment Notes Treatment Notes Treatment Clinical Notes 11/09/2024 Vitamin D deficiency (ICD-10 - E55.9) 12/23/2023 Fibromyalgia (ICD-10 - M79.7) 12/23/2023 Sjogren's disease (ICD-10 - M35.00) 05/31/2024 Fibromyalgia (ICD-10 - M79.7) 05/31/2024 Sjogren's disease (ICD-10 - M35.00) 11/08/2024 Fibromyalgia (ICD-10 - M79.7) 11/08/2024 Sjogren's disease (ICD-10 - M35.00) 12/23/2023 Elevated C-reactive protein (CRP) (ICD-10 - R79.82) 05/31/2024 Elevated C-reactive protein (CRP) (ICD-10 - R79.82) 11/08/2024 Vitamin D deficiency (ICD-10 - E55.9) 12/23/2023 Other correction (current) drug therapy (ICD-10 - Z79.899) 05/31/2024 Other ocean transportation intermediary (current) drug therapy (ICD-10 - Z79.899) 11/08/2024 Other correction (current) drug therapy (ICD-10 - Z79.899) 12/23/2023 Bursitis (ICD-10 - M71.9) 05/31/2024 Rib pain on left side (ICD-10 - R07.81) 11/08/2024 Elevated C-reactive protein (CRP) (ICD-10 - R79.82) 12/23/2023 Rash (ICD-10 - R21) 05/31/2024 Rash (ICD-10 - R21) 11/08/2024 Rib pain on left side (ICD-10 - R07.81) 12/23/2023 Essential (primary) hypertension (ICD-10 - I10) 05/31/2024 Bursitis (ICD-10 - M71.9) 11/08/2024 Rash (ICD-10 - R21) 12/23/2023 Left hip pain (ICD-10 - M25.552) 05/31/2024 Left hip pain (ICD-10 - M25.552) 11/08/2024 Bursitis (ICD-10 - M71.9) 05/31/2024 Essential (primary) hypertension (ICD-10 - I10) 11/08/2024 Left hip pain (ICD-10 - M25.552) 11/08/2024 Essential (primary) hypertension (ICD-10 - I10) PLAN OF TREATMENT Pending Test Test Name Order Date Complement C4, Serum 08/12/2016 CBC With Differential/Platelet 7 Sed Rate - Westergren 08/12/2016 Complement C3, Serum 08/12/2016 C-Reactive Protein, Quant 08/12/2016 Comp. Metabolic Panel (14) 08/12/2016 ADITYA Panel (ADITYA+CHINA+Scl 70+SjoSSA+SjoSSB) 08/12/2016 X ray : Knee, left, 3 views- outside ord er 08/13/2017 X ray : Hip, left- outside order 024 X ray : Hip, right- outside order 2023 - dsDNA (nDNA) Scrn by Odalis 019 - dsDNA (nDNA) Scrn by Crithidia 017 Lab slip given 08/12/2016 -Xray slip given 08/13/2017 -Xray slip given 12/23/2023 -Xray slip given 05/31/2024 X ray : Spines, thoracic- outside order 05/31/2024 DS DNA ANTIBODY, CRITHIDIA, IFA W/REFL Q UEST 05/10/2022 DS DNA ANTIBODY, CRITHIDIA, IFA W/REFL Q UEST 06/24/2023 Future Test Test Name Order Date AST (SGOT) 07/16/2023 ALT (SGPT) 07/16/2023 Next Appt Details Provider Name:Keturah Bullock, 04/11/2025 11:30:00 AM, [address] [facility], [address], [place], [place], [phone], Insurance Providers Payer Name Payer Address Payer Phone Subscriber Number Group Number Insured Name Patient Relationship to Insured Coverage Start Date Coverage End Date [employer] [address] [address] [place] [address] [id number] Maximus Marroquin Spouse - patient is the spouse of the insured 0 MEDICAL (GENERAL) HISTORY Medical History History ICD Code bruises easily tension headaches dizziness sinus problems swollen glands in neck chest pain high blood pressure asthma indigestion Lack of bladder control Hot Flashes anxiety depression [facility] BRANDON Surgical History Surgery Date(Month/Year) Septoplasty 1998 laparoscopy 1999,1995
--- OUTSIDE RECORDS SUMMARY | 2024-11-28 12:09 | XMS_ITS ---
Author Organization [facility] Address [address] [place], [place] [id number] Care Team Providers Care Configuration Developer Name Role Phone Homa Frazier Primary Care Provider Erum Portillo Unavailable [phone] MEDICATIONS Medication SIG (Take, Route, Frequency, Duration) [...] Date Provider Diagnosis [facility] [address] [facility] [place], [place] [phone] 11/09/2024 Erum Richards Vitamin D deficiency E55.9 [...] AM, [address], [address], [place], [place], [phone],
[2024-11-28 12:13] VITALS: BP 155/87; PULSE 93; RESP 18; TEMP 36.8; O2SAT 98
--- NOTE | 2024-11-28 12:32 | ED.GENADULT ---
HPI - General Adult General Chief complaint: Extremity Injury, Upper Stated complaint: fall History of Present Illness HPI narrative: Rosemary Marroquin is a 54-year-old female who presents today with complaints of having left forearm pain. She states that she was on a metal 10 ft ladder to get in to her attic and was on her way down the ladder states she was on her last step and felt that it was falling try to grab something to hold onto to prevent the fall but ended up falling onto her left hip and left forearm. She denies hitting her head denies loss of conscious denies being on any blood thinners. She denies neck pain back pain or hip pain. She complains of left forearm pain. The fall happened about 30 minutes prior to arrival. Ambulatory without difficulty Related Data Home Medications ?Medication ?Instructions ?Recorded ?Confirmed ?Last Taken ?Type bupropion HCl 150 mg 24 hr tablet, 300 mg PO DAILY 12/10/19 05/01/24 12/09/19 History extended release levonorgestrel 0.15 mg-ethinyl 1 tablet PO DAILY 12/10/19 05/01/24 12/09/19 History estradiol 30 mcg tablets,3 mos pack(91) (Jolessa) metoprolol succinate 25 mg 25 mg PO DAILY 12/10/19 05/01/24 12/09/19 History tablet,extended release 24 hr hydroxychloroquine 200 mg tablet 200 mg PO DAILY 05/21/21 05/01/24 Unknown History (Plaquenil) milnacipran 50 mg tablet (Savella) 50 mg PO DAILY 05/21/21 05/01/24 Unknown History trazodone 50 mg tablet 50 mg PO HS 06/06/23 05/01/24 Unknown History Allergies Allergy/AdvReac Type Severity Reaction Status Date / Time NSAIDS (Non-Steroidal Allergy Intermediate GI bleed Verified 11/28/24 12:15 Anti-Inflamma erythromycin base AdvReac Intermediate NAUSEA/VOMI Verified 11/28/24 12:15 TING telithromycin AdvReac Mild Nausea and Verified 11/28/24 13:14 Vomiting Review of Systems Review of Systems: All systems reviewed & are unremarkable except as noted in HPI and below PMFSH Past Medical History Medical History Sjogren's disease Hypertension Social History Social History Smoking status: Never smoker Gender identity (if verbalized by the patient): Female Exam Narrative: GENERAL: Well-appearing, well-nourished, and in no acute distress. HEAD: Normocephalic, atraumatic. EYES: PERRLA and EOMI. ENT: Nares clear, no rhinorrhea or epistaxis. Mucous membranes moist. NECK: Supple. No adenopathy or masses. No pain with palpation CHEST: Clear to auscultation. No respiratory distress. No wheezes rales or rhonchi HEART: Regular rate and rhythm. No murmur heard. Normal peripheral pulses. ABDOMEN: Soft, nontender, nondistended, normal active bowel sounds. EXTREMITIES: Normal range of motion. + swelling/ abrasions/ ecchymosis to the left forearm Strong radial pulse distal hand neurovascaular intact SKIN: Warm, NEURO: No focal deficits. Alert and oriented x3. PSYCH: Normal mood and affect. Course Course Level of Care: Express Care Visit Vital Signs Vital signs: Vital Signs Temperature 36.8 C 11/28/24 12:13 Pulse Rate 93 11/28/24 12:13 Respiratory Rate 18 11/28/24 12:13 Blood Pressure 155/87 H 11/28/24 12:13 Pulse Oximetry 98 11/28/24 12:13 Oxygen Delivery Room Air 11/28/24 12:13 Temperature 36.8 C 11/28/24 12:13 Pulse Rate 93 11/28/24 12:13 Respiratory Rate 18 11/28/24 12:13 Blood Pressure 155/87 H 11/28/24 12:13 Pulse Oximetry 98 11/28/24 12:13 Oxygen Delivery Room Air 11/28/24 12:13 Medical Decision Making MDM Narrative Medical decision making narrative: no obvious head trauma, pt alert and oriented X4 lung sounds clear no cervical, thoracic or lumbar spinal pain with palpation no pelvic or hip pain with palpation lower extremities without obvious deformity, mild pain to the medial right knee , ambulating without difficulty NO clavicular deformity or pain with palpation No shoulder pain with palpation No snuff box tenderness Left forearm Normal range of motion. + swelling/ abrasions/ ecchymosis to the left forearm Strong radial pulse distal hand neurovascular intact Patient is able to bend at the elbow and make a fist with the left hand concern for fracture to the radius / ulna vs contusion plan to check XR and treat her pain with acetaminophen XR: No acute fractures Patient updated on x-ray results. She is relieved to hear that nothing is broken however and let her know that she will need to rest, ice, elevate over the next several days and if she has any continued pain new pain then she will need to follow up with Orthopedic to see if she needs to have more imaging completed. She is agreeable to this plan abrasions cleansed covered in antibiotic ointment sterile dressing with Telfa arm wrapped in Zander wrap and sling provided for comfort encouraged to follow-up with primary care doctor referring to orthopedic surgeon if she should need strict return precautions discussed. Medical Records Medical records reviewed: Yes I reviewed the external patient's medical records. Vital Signs Vital Signs: Vital Signs Temperature 36.8 C 11/28/24 12:13 Pulse Rate 93 11/28/24 12:13 Respiratory Rate 18 11/28/24 12:13 Blood Pressure 155/87 H 11/28/24 12:13 Pulse Oximetry 98 11/28/24 12:13 Oxygen Delivery Room Air 11/28/24 12:13 Temperature 36.8 C 11/28/24 12:13 Pulse Rate 93 11/28/24 12:13 Respiratory Rate 18 11/28/24 12:13 Blood Pressure 155/87 H 11/28/24 12:13 Pulse Oximetry 98 11/28/24 12:13 Oxygen Delivery Room Air 11/28/24 12:13 vitals reviewed by me Imaging Data Radiologist's impression: Impressions Forearm X-Ray 11/28/24 13:05 IMPRESSION: No acute fracture as detailed above. Wrist X-Ray 11/28/24 13:05 IMPRESSION: Degenerative disease, without acute fracture. Discharge Plan Discharge Clinical Impression: Contusion of arm, left Qualifiers: Encounter type: initial encounter Qualified Code(s): S40.022A - Contusion of left upper arm, initial encounter Patient Disposition: Home Condition: Stable Instructions: Antibiotic Form, P.R.I.C.E. Treatment (ED) Additional Instructions: Continue to keep your left arm elevated, rested and ice 20 minutes on at a time over the next 3-4 days avoid any strenuous activity or heavy lifting for the next 5-7 please follow-up with your primary care doctor within a week to ensure this is improving and getting better if you continue to have pain after 10-14 days and repeat imaging may be warranted if he develops any worsening or new pain then seek care sooner Patient Language: Macedonian Prescriptions: No Action Savella 50 mg tablet 50 mg PO DAILY hydroxychloroquine [Plaquenil] 200 mg Tablet 200 mg PO DAILY trazodone 50 mg tablet 50 mg PO HS metoprolol succinate 25 mg tablet extended release 24 hr 25 mg PO DAILY bupropion HCl 150 mg tablet extended release 24 hr 300 mg PO DAILY levonorgestrel-ethinyl estrad [Jolessa] 0.15 mg-30 mcg (91) tablets,dose pack,3 month 1 tablet PO DAILY amlodipine 5 mg tablet 5 mg PO DAILY Qty: 14 0RF cyclobenzaprine 10 mg tablet 10 mg PO TID PRN (Reason: muscle spasm) Qty: 20 0RF acetaminophen 500 mg capsule 500 mg PO QID PRN (Reason: pain) Qty: 14 0RF Follow-up/Referrals: Tin Louise MD [Physician] - 1 Week Karin,Homa Hernandez APRN [Primary Care Provider] - 1 Week Time of Disposition: 13:22
[2024-11-28] MEDS: ACETAMINOPHEN 500 MG TABLET 1000 MG PO (13:04)
== END 2024-11-28 13:26 | disposition home or self-care (01) ==
PROVIDERS: Emergency Provider Nurse Practitioner Family; PCP Nurse Practitioner Family
DX: S50.12XA Contusion of left forearm, initial encounter (principal); W11.XXXA Fall on and from ladder, initial encounter; I10 Essential (primary) hypertension; M35.00 Sjogren syndrome, unspecified
CPT/HCPCS: 73090; 73110; 99213; A4565; A9270; G0463

== ENCOUNTER 2025-03-18 13:16 | Emergency (ER) | payer BC, SELFPAY ==
--- OUTSIDE RECORDS SUMMARY | 2024-11-08 09:48 | XMS_ITS ---
Author Organization [facility] Address [address] [place], [place] [id number] Care Team Providers Care Lift Supervisor Name Role Phone Homa Frazier Primary Care Provider Erum Portillo [phone] MEDICATIONS Medication SIG (Take, Route, Frequency, Duration) Notes Start Date End Date Status Diclofenac Sodium Solution 20 mg/pump (2%) 2 pump(s) applied topically to affected area as needed 2 times a day for 30 days 11/08/2024 Active Encounters Encounter Location Date Provider Diagnosis [facility] [address], [address] [place], [place] [phone] 11/08/2024 Erum Richards PLAN OF TREATMENT Medication Medication Name Sig Start Date Stop Date Notes Diclofenac Sodium Solution 2 0 mg/pump (2%) 2 pump(s) applied topically to affected area as needed 2 times a day for 30 days 11/08/2024 Next Appt Details Provider Name:Keturah Bullock, 04/11/2025 11:30:00 AM, [address], [address], [place], [place], [phone],
--- OUTSIDE RECORDS SUMMARY | 2024-11-09 10:24 | XMS_ITS ---
Author Organization [facility] Address [address] [place], [place] [phone] Care Team Providers Care Furniture Assembly Supervisor Name Role Phone Homa Frazier Primary Care Provider Erum Portillo Unavailable [phone] MEDICATIONS Medication SIG (Take, Route, Frequency, Duration) Notes Start Date End Date Status Savella 50 mg TAKE 1 TABLET BY MOUTH TWICE DAILY for 90 Unknown amlodipine besylate 5 mg one a a day Unknown metoprolol 25 mg 1 tab(s) orally once a day Unknown ergocalciferol 50,000 intl units 1 cap(s) orally once a week for 28 days 11/09/2024 Active Diclofenac Sodium Solution 20 mg/pump (2%) 2 pump(s) applied topically to affected area as needed 2 times a day for 30 days 11/08/2024 Unknown hydroxychloroquine 200 mg 1 and 1/2 tab( s) orally once a day Unknown Voltaren Gel - for lower body joint 1% APPLY TOPICALLY TO LOWER BACK AND KNEES, APPLY 4 GRAMS THREE TIMES DAILY NEEDED Unknown TiZANidine Hydrochloride 2 mg 1-2 tab(s) orally PRN for 30 days 05/31/2024 Unknown buPROPion 150 mg/24 hours 1 tab(s) orall y every 24 hours Unknown albuterol-ipratropium CFC free 100 mcg-20 mcg/inh 1 puff(s) inhaled 4 times a day Unknown busPIRone 5 mg 1 tab(s) orally 2 times a day Unknown Estradiol Unknown Buspar 7.5mg twice a day Unknown Encounters Encounter Location Date Provider Diagnosis [facility] [address] [place], [place] [id number] 11/09/2024 Erum Richards Vitamin D deficiency E55.9 ASSESSMENTS Encounter Date Diagnosis Assessment Notes Treatment Notes Treatment Clinical Notes Section Notes 11/09/2024 Vitamin D deficiency (ICD-10 - E55.9) PLAN OF TREATMENT Medication Medication Name Sig Start Date Stop Date Notes ergocalciferol 50,000 intl units 1 cap(s ) orally once a week for 28 days 11/09/2024 Next Appt Details Provider Name:Keturah Bullock, 04/11/2025 11:30:00 AM, [address], [address], [place], [place], [phone],
--- OUTSIDE RECORDS SUMMARY | 2024-11-10 09:25 | XMS_ITS ---
Author Organization [facility] Address [address] [place], [place] [phone] Care Team Providers Care Stranner Name Role Phone Homa Frazier Primary Care Provider Erum Portillo Unavailable [phone] REASON FOR VISIT diclofenac PA Encounters Encounter Location Date Provider Diagnosis [facility] [address], [address] [place], [place] [phone] 11/10/2024 Erum Richards PLAN OF TREATMENT Next Appt Details Provider Name:Keturah Bullock, 04/11/2025 11:30:00 AM, [address], [address], [place], [place], [phone],
--- OUTSIDE RECORDS SUMMARY | 2024-12-18 04:00 | XMS_ITS ---
Author Organization [facility] Address [address] [place], [place] [id number] Care Team Providers Care Assistant Basketball Coach Name Role Phone Homa Frazier Primary Care Provider Erum Portillo [phone] REASON FOR VISIT Pain MEDICATIONS Medication SIG (Take, Route, Fr equency, Duration) Notes Start Date End Date Status predniSONE 5 mg 6 tablets for 2 days then decrease by 1 tablet every 2 days until ralph orally once a day for 12 days 12/19/2024 Ac tive Encounters Encounter Location Date Provider Diagnosis [facility] [address], [address] [place], [place] [id number] 12/18/2024 Erum Richards PLAN OF TREATMENT Medication Medication Name Sig Start Date Stop Date Notes predniSONE 5 mg 6 tablets for 2 days then decrease by 1 tablet every 2 days until ralph orally once a day for 12 days 12/19/2024 Next Appt Details Provider Name:Keturah Bullock, 04/11/2025 11:30:00 AM, [address], [address], [place], [place], [id number],
--- OUTSIDE RECORDS SUMMARY | 2024-12-20 01:42 | XMS_ITS ---
Author Organization [facility] Address [address] [place], [place] [id number] Care Team Providers Care Punch Out Crew Member Name Role Phone Homa Frazier Primary Care Provider Erum Portillo Unavailable [phone] REASON FOR VISIT RE:Pain Encounters Encounter Location Date Provider Diagnosis [facility] [address] [place], [place] [id number] 12/20/2024 Erum Richards PLAN OF TREATMENT Next Appt Details Provider Name:Keturah Bullock, 04/11/2025 11:30:00 AM, [address], [address], [place], [place], [id number],
--- NOTE | 2025-03-18 13:20 | ED.EAR ---
HPI - Ear Problem General Chief complaint: Ear Stated complaint: Ear pain Time Seen by Provider: 03/18/25 13:30 Source: patient Mode of arrival: ambulatory Limitations: no limitations History of Present Illness HPI Narrative: Rosemary is a 55-year-old female patient presenting to the clinic today with complaints of left ear pain x1 week. She reports she has had runny nose, feeling as though her ears clogged, and nasal congestion for the past week. Denies any fevers, chills, or body aches. States her children tested positive for COVID. Today she felt as though her left ear was draining and this prompted her to come into the clinic for evaluation. Related Data Home Medications ?Medication ?Instructions ?Recorded ?Confirmed ?Last Taken ?Type bupropion HCl 150 mg 24 hr tablet, 300 mg PO DAILY 12/10/19 05/01/24 12/09/19 History extended release metoprolol succinate 25 mg 25 mg PO DAILY 12/10/19 05/01/24 12/09/19 History tablet,extended release 24 hr hydroxychloroquine 200 mg tablet 200 mg PO DAILY 05/21/21 05/01/24 Unknown History (Plaquenil) milnacipran 50 mg tablet (Savella) 50 mg PO DAILY 05/21/21 05/01/24 Unknown History estradiol-norethindrone acet 1 tablet 03/18/25 Unknown History mg-0.5 mg tablet hydrochlorothiazide 25 mg tablet mg 03/18/25 Unknown History Allergies Allergy/AdvReac Type Severity Reaction Status Date / Time NSAIDS (Non-Steroidal Allergy Intermediate GI bleed Verified 03/18/25 13:38 Anti-Inflamma erythromycin base AdvReac Intermediate NAUSEA/VOMI Verified 03/18/25 13:38 TING telithromycin AdvReac Mild Nausea and Verified 03/18/25 13:38 Vomiting Review of Systems Review of Systems: Pertinent positives per HPI. Patient denies any fever, chills, rash, headache, visual changes, dizziness, cough, shortness of breath, chest pain, palpitations, nausea, vomiting, diarrhea, constipation, abdominal pain, or any urinary issues. PMFSH Past Medical History Medical History Sjogren's disease Hypertension Social History Social History Smoking status: Never smoker Gender identity (if verbalized by the patient): Female Comments At the time of my signature, I reviewed and agree with the nursing past medical, surgical, social, and family history. There is no relevant family history pertinent to the patient complaint. Exam Narrative: General: Well-developed, well nourished, in no apparent distress Head: Normocephalic, atraumatic Eyes: Pupils equally round and reactive to light bilaterally, EOM intact, sclera and conjunctive clear, no discharge, lids normal Ears: TMs intact, red, and bulging, ear canals clear, no drainage, grossly hearing normal. Nose: Nares patent, clear nasal discharge, mild inflammation, no sinus tenderness. Mouth: Oral pharynx without lesions or masses, good dentition, MMM. Neck: Supple, trachea midline, no enlargement of anterior or posterior cervical nodes, no thyroid masses or goiter palpable. Cardio: Regular rate and rhythm, s1 and s2 normal, no murmur appreciated. Resp: Clear to auscultation bilaterally, no rhonchi, rales, wheezing or rubs Course Course Emergency Course: Portions of this record may have been created with voice recognition software. Level of Care: Express Care Visit Vital Signs Vital signs: Vital Signs Temperature 37.2 C 03/18/25 13:25 Pulse Rate 91 03/18/25 13:25 Respiratory Rate 14 03/18/25 13:25 Blood Pressure 164/75 H 03/18/25 13:25 Pulse Oximetry 98 03/18/25 13:25 Oxygen Delivery Room Air 03/18/25 13:25 Temperature 37.2 C 03/18/25 13:25 Pulse Rate 91 03/18/25 13:25 Respiratory Rate 14 03/18/25 13:25 Blood Pressure 164/75 H 03/18/25 13:25 Pulse Oximetry 98 03/18/25 13:25 Oxygen Delivery Room Air 03/18/25 13:25 Vital signs reviewed Medical Decision Making MDM Narrative Medical decision making narrative: At the time of visit patient is resting comfortably on the exam table. Patient appears to be nontoxic. Complaints of left ear pain x1 week. She reports she has had runny nose, feeling as though her ears clogged, and nasal congestion for the past week. Denies any fevers, chills, or body aches. States her children tested positive for COVID. Today she felt as though her left ear was draining and this prompted her to come into the clinic for evaluation. On exam patient has bilateral TMs intact, bulging, red, clear nasal drainage, mild anterior turbinates inflammation, lung sounds are clear, heart rate regular rate rhythm. Plan: I suspect patient has bilateral otitis media. Prescription for amoxicillin was sent to pharmacy. Patient is requesting Diflucan as she gets vaginal yeast infections taking antibiotics. Prescription for Diflucan was sent to the pharmacy as well. Supportive measures were discussed with the patient and they voiced understanding discharge instructions and agrees to treatment plan. Return precautions reviewed Differential Diagnosis Differential Diagnosis: Otitis media, otitis externa, eustachian tube dysfunction, cerumen impaction, upper respiratory infection, serous otitis Vital Signs Vital Signs: Vital Signs Temperature 37.2 C 03/18/25 13:25 Pulse Rate 91 03/18/25 13:25 Respiratory Rate 14 03/18/25 13:25 Blood Pressure 164/75 H 03/18/25 13:25 Pulse Oximetry 98 03/18/25 13:25 Oxygen Delivery Room Air 03/18/25 13:25 Temperature 37.2 C 03/18/25 13:25 Pulse Rate 91 03/18/25 13:25 Respiratory Rate 14 03/18/25 13:25 Blood Pressure 164/75 H 03/18/25 13:25 Pulse Oximetry 98 03/18/25 13:25 Oxygen Delivery Room Air 03/18/25 13:25 Discharge Plan Discharge Clinical Impression: Otitis media Qualifiers: Otitis media type: suppurative Chronicity: acute Laterality: bilateral Recurrence: non-recurrent Spontaneous tympanic membrane rupture: without spontaneous rupture Qualified Code(s): H66.003 - Acute suppurative otitis media without spontaneous rupture of ear drum, bilateral Patient Disposition: Home Condition: Stable Instructions: Antibiotic Form, Ear Infection (ED) Additional Instructions: Take any prescribed medications only as directed-amoxicillin Tylenol/motrin as needed for pain May use heating pad to alleviate pain If you get recurrent ear infections it may be warranted to follow up with ENT. Follow up with your PCP in 3-5 days if symptoms persist. Patient Language: Welsh Prescriptions: New amoxicillin 875 mg tablet 875 mg PO Q12H 10 Days Qty: 20 0RF fluconazole 150 mg tablet 150 mg PO ONCE Qty: 2 0RF Rx Instructions: as a single dose. May repeat in 72 hours if needed. No Action Savella 50 mg tablet 50 mg PO DAILY hydroxychloroquine [Plaquenil] 200 mg Tablet 200 mg PO DAILY hydrochlorothiazide 25 mg tablet estradiol-norethindrone acet 1-0.5 mg tablet metoprolol succinate 25 mg tablet extended release 24 hr 25 mg PO DAILY bupropion HCl 150 mg tablet extended release 24 hr 300 mg PO DAILY acetaminophen 500 mg capsule 500 mg PO QID PRN (Reason: pain) Qty: 14 0RF Follow-up/Referrals: PHYSICIAN NOT ON STAFF,NONSTAFF [Primary Care Provider] Time of Disposition: 13:45 Quality NIHSS Nursing Documentation ED NIHSS nursing documentation: reviewed/agree
[2025-03-18 13:25] VITALS: BP 164/75; PULSE 91; RESP 14; TEMP 37.2; O2SAT 98
--- OUTSIDE RECORDS SUMMARY | 2025-03-18 14:05 | XMS_ITS | Clinical Summary ---
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 Gender Identity Not on file Sexual Orientation Not on file Obstetrics History Last Filed Vital Signs Vital Sign Reading Time Taken Comments Blood Pressure 143/77 02/28/2023 12:26 PM CDT Pulse 88 02/28/2023 12:26 PM CDT Temperature 36.6 C (97.8 F) 02/28/2023 12:26 PM CDT Respiratory Rate 16 06/07/2021 3:20 PM SERVICE DOG TRAINER Oxygen Saturation 98% 02/28/2023 12:26 PM CDT Inhaled Oxygen Concentration - - Weight 72.8 kg (160 lb 6.4 oz) 06/09/2024 9:31 A M SERVICE DOG TRAINER Height 165.1 cm (5' 5) 02/28/2023 12:26 PM CDT Body Mass Index 26.69 02/28/2023 12:26 PM CDT Plan of Treatment Health Maintenance Due Date Last Done Comments Cervical Cancer Screening 1970 Colon Cancer Screening-Colonoscopy 1970 Depression Screening 1970 Hepatitis C Screening 1970 Hepatitis B Screening 02/18/1988 Regular Well Visit/Exam 18-64 02/18/1988 Pneumococcal vaccine <65 (3 of 3 - PCV) 04/12/2021 04/12/2020, 02/07/2020 Breast Cancer Screening-Mammogram 06/20/2024 06/20/2023, 06/20/2023, 06/04/2022, Additional history exists DTaP/Tdap/Td Vaccine (2 - Td or Tdap) 07/20/2024 07/20/2014 Covid-19 Vaccine (4 - 2024-2 6 season) 2025 03/29/2021, 09/21/2020, 08/29/2020 Influenza Vaccine (#1) 2025 , 05/04/2023, 04/19/2022, Additional history exists Zoster Vaccine Completed 05/06/2022, 02/02/2022 Medical Devices Implanted Type Area Rehabilitation Worker Device Identifier Shelf Expiration Date Model / Serial / Lot [employer] 4063 Inspire 3 Electrode Cuff Tunnel [place] Lead Neurostimulator Sterile - [id number] - [id number] Implanted:Qty: 1 on 06/07/2021 by Hamzah Ford MD at [facility] Right: Neck [employer] 11/07/2022 4063 / [id number] / Description:Patients with ge nerator Inspire Model 3028 can undergo MRI on the head and extremities if certain conditions and precautions are met [employer] 3028 Generator Neurostimulator - [id number] - [id number] Implanted:Qty: 1 on 06/07/2021 by Hamzah Ford MD at [facility] Right: Neck [employer] [id number] 02/07/2024 3028 / [id number] / Description:Patients with In spire Model 3028 can undergo MRI on the head and extremities if certain conditions and precautions are met [employer] 4340 Lead Neurostimulator Inspire Respiratory Sens Cycle Strl Lf - [id number] - [id number] Implanted:Qty: 1 on 06/07/2021 by Hamzah Ford MD at [facility] Right: Neck [employer] [id number] 12/11/2022 4340 / [id number] / Description:Patients with ge nerator Inspire Model 3028 can undergo MRI on the head and extremities if certain conditions and precautions are met Insurance [employer] OOS [employer] [facility] [facility] Address: [address] [place] [address] Care Teams Continuity Person Relationship Specialty [place] [id number] [address] [place] [address] PCP - General Family Medicine 02/27/24
--- OUTSIDE RECORDS SUMMARY | 2025-03-18 14:05 | XMS_ITS | Clinical Summary ---
Author Organization [facility] Address [address] [place] [address] Care Team Providers Care Toll Gate Tender Name Role Phone Homa Frazier Primary Care Provider [phone] Source Comments [facility],non-owned Affiliates and Associated Physician Practices is amultiple site organization consisting of ambulatory clinics and hospital sitesin [place], [place], [place] and [place]. This disclosure is being madepursuant to the Care Everywhere program and may not contain all information available regarding this patient. Last updated 18.[facility] [employer] Allergies Active Allergy Reactions Criticality Noted Date Comments Benazepril Angioedema High 12/14/2019 Erythromycin GI Discomfort Medium 07/14/2008 Tree Nuts Shortness of Breath High 10/28/2013 Hazelnut allergie, causes her to break out in asthmatic attacks Medications * Be aware that medications may not be up to date on this document. Alwaysverify current medications with the patient. PROAIR HFA 108 (90 BASE) MCG/ACT inhaler Inhale 2 (two) puffs by mouth every 6 hours as needed 8 Active hydroxychloroqu ine (PLAQUENIL) 200 MG tablet Take 1 (one) tablet by mouth 2 times daily 9 Active metoprolol succinate XL 24hr (TOPROL XL) 25 MG tablet Take 1 (one) tablet by mouth 8 Active milnacipran (Savella) 50 MG tablet Take 1.5 (one and one-half) tablets by mouth 2 times daily 3 Active buPROPion XL 24hr (Wellbutrin-XL) 150 MG tablet Take 2 (two) tablets by mouth once daily 3 Active traZODone (Desyrel) 50 MG tablet Take 1 (one) tablet by mouth at bedtime 90 tablet 4 3 Active omeprazole (PriLOSEC) 20 MG capsule Take 1 (one) capsule by mouth once daily as needed Active pimecrolimus (Elidel) 1 % cream Apply to affected area 2 times daily as needed 3 Active EPINEPHrine (Epipen) 0.3 MG/0.3ML auto-injector pen ADMINISTER 0.3 MG IN THE MUSCLE 1 TIME DIRECTED 2 Active amLODIPine (Norvasc) 5 MG tablet Take 1 (one) tablet by mouth once daily 4 Active estradiol-noret hindrone (Activella) 1-0.5 MG tablet Take 1 (one) tablet by mouth once daily 90 tablet 4 4 Active Active Problems Problem Noted Date Diagnosed Date Screening for malignant neoplasm of cervix 05/05 Overview (05/05/2023): 04/28 nilm neg hpv 2018 nilm neg hpv 2016 nilm Dyslipidemia 01/28/2023 04/17/2023 Generalized anxiety disorder 01/28/202306/2023 Severe obstructive sleep apnea 02/09/2021 1 Overview (04/17/2023): DIAGNOSIS: Obstructive sleep apnea PROCEDURE PERFORMED: (Logan 06/07/21) Right hypoglossal nerve stimulator implantation Generator placement right chest wall Lead placement right intercostal muscle DIAGNOSIS: Obstructive sleep apnea PROCEDURE PERFORMED: (Logan 06/07/21) Right hypoglossal nerve stimulator implantation Generator placement right chest wall Lead placement right intercostal muscle History of colon polyps 10/03/2020 04/17/20 23 Hiatal hernia 09/19/2020 05/05/2023 Abnormal C-reactive protein 08/31/2019 Bursitis 08/31/2019 BMI 26.0-26.9,adult 09/02/2016 Fibromyalgia 05/22/2016 Onychomycosis of toenail 05/22/2016 Plantar fasciitis 05/22/2016 Neck pain 09/26/2014 Dyshydrosis 05/17/2014 Fatigue 05/17/2014 Multiple environmental allergies 12/31/2013 Overview (08/31/2019): Multiple environmental allergies Multiple environmental allergies Gastroesophageal reflux disease 10/28/2013 Overview (08/31/2019): GERD - Gastro-esophageal reflux disease GERD - Gastro-esophageal reflux disease Insomnia 10/28/2013 Depression 04/30/2013 Sjogren's disease HTN (hypertension) Anxiety Arthritis Asthma Endometriosis Family History Medical History Relation Name Comments CAD (Coronary Artery Disease) Father Cancer - Breast Maternal Aunt Cancer - Skin, Melanoma Maternal Grandmother CAD (Coronary Artery Disease) Mother CVA Mother Cancer - Breast Paternal Aunt Cancer - Breast Sister Relation Name Status Comments Father Maternal Aunt Maternal Grandmother Mother Paternal Aunt Sister Social History Tobacco Use Types Packs/Day Years Used Date Smoking Tobacco: Never Passive Smoke Exposure: Yes Smokeless Tobacco: Never Tobacco Cessation:Counseling Given: Not Answered Alcohol Use Standard Drinks/Week Comments Yes 2 (1 standard drink = 0.6 oz pur e alcohol) AUDIT-C Answer Date Recorded Frequency of Alcohol Consumption Not on file 02/07/2020 Q2: How many drinks containi ng alcohol do you have on a typical day when you are drinking? 1 or 2 02/07/2020 Q3: How often do you have si x or more drinks on one occasion? 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 Gender Identity Not on file Sexual Orientation Not on file Last Filed Vital Signs Vital Sign Reading Time Taken Comments Blood Pressure 130/80 06/24/2024 9:15 AM LACQUER PIN PRESS OPERATOR Pulse 84 03/06/2020 1:56 PM CDT Temperature 36.3 C (97.4 F) 03/06/2020 1:56 PM CDT Respiratory Rate - - Oxygen Saturation - - Inhaled Oxygen Concentration - - Weight 73 kg (161 lb) 06/24/2024 9:15 AM LACQUER PIN PRESS OPERATOR Height 166.4 cm (5' 5.5) 06/24/2024 9:15 AM LACQUER PIN PRESS OPERATOR Body Mass Index 26.38 06/24/2024 9:15 AM LACQUER PIN PRESS OPERATOR Plan of Treatment Health Maintenance Due Date Last Done Comments COLOGUARD (AGES 45-75) - COLON CA SCREENING 1970 COLON MONITORING 1970 COLONOSCOPY - COLON CA SCREENING 1970 CT COLONOGRAPHY - COLON CA SCREENING 1970 Colorectal Cancer Screening 1970 FIT - COLON CA SCREENING 1970 FLEX SIG - COLON CA SCREENING 1970 HIV SCREENING 1985 DTAP/TDAP/TD VACCINES (1 - Tdap) 1989 HEPATITIS B VACCINE (1 of 3 - 19+ 3-dose series) 1989 PNEUMOCOCCAL VACCINE 50+ (1 of 2 - PCV) 1989 ZOSTER VACCINE (1 of 2) 02/18/2020 SCREENING FOR DIABETES 04/17/2023 DEPRESSION SCREENING 07/07/2024 COVID-19 VACCINE ( season) 2025 04/01/2023, 03/20/2022, 10/10/2021, Additional history exists INFLUENZA VACCINE (#1) 2025 , 05/04/2023, 04/19/2022, Additional history exists MAMMOGRAM 10/05/2026 10/05/2024, 06/06, 06/20/2023, Additional history exists LIPID TESTING 02/29/2028 02/28/2023 PAP with HPV 04/17/2028 04/17/2023, 09/18/2018 HEPATITIS C SCREENING Completed 03/01/2024 HIB VACCINE Aged Out No longer eligi ble based on patient's age to complete this topic HPV VACCINE Aged Out No longer eligi ble based on patient's age to complete this topic MENINGOCOCCAL (Group B) VACCINE SHARED DECISION-MAKING Aged Out No longer eligible based on patient's age to complete this topic MENINGOCOCCAL GROUPS A/C/Y/W VACCINE Aged Out No longer eligible based on patient's age to complete this topic Procedures Procedure Name Priority Date/Time Associated Diagnosis Comments MAMMOGRAM Routine 10/05/2024 1:50 PM CDT HPV DETECTION HIGH RISK MARQUISE Routine 04/17/2023 1:07 PM CDT Well woman exam with routine gynecological exam from Last 3 Months or Most Recently Relevant to Health Maintenance Results * MAMMOGRAM (10/05/2024 1:50 PM CDT) Anatomical Region Laterality Modality Other Historical Provider MD SCANNING ONLY Final Res ult * HPV DETECTION HIGH RISK MARQUISE (04/17/2023 1:07 PM CDT) High Risk Human Papilloma Result Not detected Not detected 04/23/2023 8:27 AM CDT [facility] High Risk Human Papilloma Interp 04/23/2023 8:27 AM CDT [facility] Comment:High Risk Human Jan lloma Virus was Not Detected. Pathology/Cytolo gy MISCELLANEOUS SAMPLES / Unknown 04/17/2023 1:07 PM CDT 04/18/2023 12:42 PM CDT Narrative [facility] - 04/23/2023 8:27 AM CDT Nucleic acid isolated from the specimen was analyzed with a nucleic acid amplification test (FDA approved Gen-Probe HPV Assay) to detect high risk human papilloma virus (Types: 16, 18, 31, 33, 35, 39, 45, 51, 52, 56, 58, 59, 66, and 68). The reference range is Not Detected. Comment: These test results should not be used as the sole basis for clinical assessment and treatment of patients. These results should always be correlated with other available data (cytology, histology, and clinical information). Capri Barnes MD LAB - MICROBIOLOGY ORDERABLES Fi nal Result [facility] [address] [place] [address], [facility] [phone] from Last 3 Months or Most Recently Relevant to Health Maintenance Insurance ANTHEM ANTHEM Care Teams Toll Gate Tender Relationship Specialty Start Date End Date Homa Frazier [address], [address] [place] [address] PCP - General 06/20/23
--- OUTSIDE RECORDS SUMMARY | 2025-03-18 14:05 | XMS_ITS | Encounter Summary ---
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
--- OUTSIDE RECORDS SUMMARY | 2025-03-18 14:05 | XMS_ITS | Encounter Summary ---
Author Organization [facility] Address [address] [place] [address] Care Team Providers Care Clipper And Turner Name Role Phone Betzaida Chicas MD Primary Care Provider Homa Frazier Primary Care Provider [phone] Reason for Visit * Reason Onset Date Comments Question 03/03/2018 Encounter Details Date Type Department Care Team (Late st Contact Info) Description 03/03/2018 Telephone [facility] [address] [place] [address] Tayler Cintron MD [address] [place] [address] Question Social History Tobacco Use Types Packs/Day Years Used Date Smoking Tobacco: Never Assessed Comments No Sex and Gender Information Value Date Recorded Sex Assigned at Not on file Legal 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 Started on Norlyda in August because of blood pressure issues. States on the Norlyda she was spotting all the time and always had to wear a panty liner. Also reports severe breast tenderness and mood swings. Patient takes pills continuously and does not have a period. States she has been keeping track of BP's all summer and they have been normal - 120/80's States On a stressful day it might get to 140's but not often. Pt reports no side effects on Quasense. Advised patient that I would forward message to Dr. López and that I would be in touch if Dr. López wanted to see her to discuss OCP options/side effects. Pt agreeable. * Telephone Encounter - Malika Caro - 03/03/2018 9:44 AM CDT Pt called in stating that she has stop taking norlyda and has switched back to quasense. Pt states the medication side effects was really bad. Cb: [phone] documented in this encounter Plan of Treatment Not on file documented as of this encounter Visit Diagnoses Not on filedocumented in this encounter Additional Health Concerns Infection Onset Date Last Indicated Resolved Time COVID-19 Under Investigation 01/21/2020 01/21/2020 01/23/2020 6:16 AM CDT documented as of this encounter Care Teams Clipper And Turner Relationship Specialty Start Date End Date Betzaida Chicas MD PCP - General Internal Medicine 11/08/14 06/19/23 Homa Frazier [address] [place] [address] PCP - General 06/20/23 documented as of this encounter
--- OUTSIDE RECORDS SUMMARY | 2025-03-18 14:05 | XMS_ITS | Encounter Summary ---
Author Organization [facility] Address [address] [place] [address] Care Team Providers Care Transfer Knitter Name Role Phone Betzaida Chicas MD Primary Care Provider Homa Frazier Primary Care Provider [phone] Encounter Details Date Type Department Care Team (Late st Contact Info) Description 07/21/2019 Lab Requisition [facility] Derm[facility] Lab [address] [facility] [place] [address] Ruth Rodriguez DO [address] [facility] [address] [place] [address] Social History Tobacco Use Types Packs/Day Years Used Date Smoking Tobacco: Never Smokeless Tobacco: Never Alcohol Use Standard Drinks/Week Comments Yes 0 (1 standard drink = 0.6 oz pur e alcohol) Comments No Sex and Gender Information Value Date Recorded Sex Assigned at Not on file Legal Sex Female 6:31 AM SCREW 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 Gender Identity Not on file Sexual Orientation Not on file documented as of this encounter Plan of Treatment Not on file documented as of this encounter Procedures Procedure Name Priority Date/Time Associated Diagnosis Comments DERMATOPATHOLOGY Routine 07/21/2019 12:0 0 AM SCREW 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 documented in this encounter Results * DERMATOPATHOLOGY (07/21/2019 12:00 AM SCREW 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) Case Report Dermatopathology Report Case: [id number] Authorizing Provider: Ruth Rodriguez DO Collected: 07/21/2019 12:00 AM Ordering Location: [facility] DermPath Lab Received: 07/21/2019 01:52 PM Pathologist: Jose Blanco MD Specimen: Skin, right post neck 0 7:53 PM [facility] DERMATOPATHOLOGY [facility]ORATORY Final Diagnosis Specimen A. SKIN, right post neck: SUBACUTE SPONGIOTIC DERMATITIS (L30.8) CHRONIC PERIFOLLICULITIS (L73.8) (see microscopic description and comment) 0 7:53 PM [facility] DERMATOPATHOLOGY [facility]ORATORY at [address] [facility] Clinical History R/O NMSC. Non-healing. 0 7:53 PM [facility] DERMATOPATHOLOGY [facility]ORATORY Gross Description Specimen A: Received is one formalin filled container labeled with the patient's name and designated right post neck. The specimen consists of a shave measuring 9w0x4bc. Jar 0. 0 7:53 PM [facility] DERMATOPATHOLOGY [facility]ORATORY Microscopic Description Specimen A. SKIN, right post neck: There is focal parakeratosis and spongiosis of the epidermis. In the dermis there is a mainly superficial perivascular lymphoid infiltrate. Grocott's methenamine silver (GMS) stain is negative for fungal elements in the sections examined. Sections also show a perifollicular lymphohistiocytic infiltrate. COMMENT: These histological findings are consistent with an eczematous dermatitis including seborrheic dermatits. There is no evidence of epithelial dysplasia or malignancy in multiple deeper sections examined. 0 7:53 PM [facility] DERMATOPATHOLOGY LABORATORY Disclaimer An external and internal positive and negative controls are appropriate for the histochemical, immunohistochemical and immunofluorescence stain(s) in this case (if any), except where stated explicitly. The performance characteristics of the stain(s) cited in this report were developed and its performance characteristic determined by the Dermatopathology Laboratory at [facility], directed by Dr. Azra Blanco. These tests need not be, and therefore are not, approved by the [place] Food and Drug Administration. The tests are used for clinical purposes. Billing Codes Specimen Charges Stain Charges 15468 1 45005 1 0 7:53 PM [facility] DERMATOPATHOLOGY LABORATORY Embedded Images 01/16/202 0 7:53 PM SCREW 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 DERMATOPATHOLOGY LABORATORY Pathology/Cytolog y TISSUE SPECIMEN FROM SKIN / Unknown 07/21/2019 07/21/2019 1:52 PM SCREW 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 us Ruth Ninfareinaldo Rodriguez DO LAB - PATHOLOGY/CYTOLOGY ORDERABLES Final Result DERMATOPATHOLOGY LABORATORY [facility] - Department of Dermatology [address] [place] [address] [address] [phone] documented in this encounter Visit Diagnoses Not on filedocumented in this encounter Additional Health Concerns Infection Onset Date Last Indicated Resolved Time COVID-19 Under Investigation 01/21/2020 01/21/2020 01/23/2020 6:16 AM CDT documented as of this encounter Care Teams Transfer Knitter Relationship Specialty Start Date End Date Betzaida Chicas MD PCP - General Internal Medicine 11/08/14 06/19/23 Homa Frazier [address] [facility] [address] [facility] [place] [address] PCP - General 06/20/23 documented as of this encounter
--- OUTSIDE RECORDS SUMMARY | 2025-03-18 14:05 | XMS_ITS | Encounter Summary ---
Author Organization [facility] Address [address] [place] [address] Care Team Providers Care Color Worker Name Role Phone Betzaida Chicas MD Primary Care Provider [phone] Homa Frazier Primary Care Provider Encounter Details Date Type Department Care Team (Late st Contact Info) Description 07/31/2020 Lab Requisition [facility] [address] [facility] [place] [address] Ruth Rodriguez DO [address] [facility] [address] [place] [address] Social History Tobacco Use Types Packs/Day Years Used Date Smoking Tobacco: Passive Smo ke Exposure - Never Smoker Cigarettes Smokeless Tobacco: Never Alcohol Use Standard Drinks/Week Comments Yes 2 [...] on file Legal Sex Female 6:31 AM GYNECOLOGICAL ASSISTANT Gender Identity Not on file Sexual Orientation Not on file documented as of this encounter Plan of Treatment Not on file documented as of this encounter Procedures Procedure Name Priority Date/Time Associated Diagnosis Comments DERMATOPATHOLOGY Routine 07/31/2020 3:33 AM GYNECOLOGICAL ASSISTANT documented in this encounter Results * DERMATOPATHOLOGY (07/31/2020 3:33 AM GYNECOLOGICAL ASSISTANT) Case Report Dermatopathology Report Case: [id number] Authorizing Provider: Ruth Rodriguez DO Collected: 07/31/2020 03:33 AM Ordering Location: [facility] DermPath Lab Received: 07/31/2020 10:43 AM Pathologist: Jose Blanco MD Specimens: A) - Skin, left forearm B) - Skin, right breast 1:32 PM [facility] DERMATOPATHOLOGY [facility]ORATORY Final Diagnosis Specimen A. SKIN, left forearm: LICHEN PLANUS-LIKE KERATOSIS (BENIGN LICHENOID KERATOSIS) (L82.1) Specimen B. SKIN, right breast: PROMINENT BASILAR PIGMENTATION CONSISTENT WITH SOLAR LENTIGO (L81.4) 1:32 PM [facility] DERMATOPATHOLOGY LABORATORY at [address] GYNECOLOGICAL ASSISTANT Clinical History A: LPLK R/O atypia B: Lentigo R/O atypia 1:32 PM [facility] DERMATOPATHOLOGY LABORATORY Gross Description Specimen A: Received is one formalin filled container labeled with the patient's name and designated left forearm. The specimen consists of a shave biopsy measuring 6x6x1 mm. Jar 0. Specimen B: Received is one formalin filled container labeled with the patient's name and designated right breast. The specimen consists of a shave biopsy measuring 8x6x1 mm. Jar 0. 1:32 PM [facility] DERMATOPATHOLOGY LABORATORY Microscopic Description Specimen A. SKIN, left forearm: The epidermis is mildly acanthotic. There is a mild lichenoid infiltrate with vacuolar changes of basilar keratinocytes and scattered necrotic keratinocytes. Specimen B. SKIN, right breast: Sections show prominent pigmentation of the basal layer without a prominent increase in melanocytes. Some of the basilar keratinocytes are slightly enlarged but uniform. The rete ridges are not elongated. 1:32 PM [facility] DERMATOPATHOLOGY LABORATORY Disclaimer An external and internal positive and negative controls are appropriate for the histochemical, immunohistochemical and immunofluorescence stain(s) in this case (if any), except where stated explicitly. The performance characteristics of the stain(s) cited in this report were developed and its performance characteristic determined by the Dermatopathology Laboratory at [facility], directed by Dr. Azra Blanco. These tests need not be, and therefore are not, approved by the [place] Food and Drug Administration. The tests are used for clinical purposes. Billing Codes Specimen Charges Stain Charges 33660 [id number] 1 1 1 1:32 PM GYNECOLOGICAL ASSISTANT DERMATOPATHOLOGY LABORATORY Embedded Images 1 1:32 PM GYNECOLOGICAL ASSISTANT DERMATOPATHOLOGY LABORATORY Pathology/Cytology TISSUE SPECIMEN FROM SKIN / Unknown 07/31/2020 3:33 AM GYNECOLOGICAL ASSISTANT 07/31/2020 10:43 AM GYNECOLOGICAL ASSISTANT Miscellaneous samples (specimen) TISSUE SPECIMEN FROM SKIN / Unknown 07/31/2020 3:33 AM GYNECOLOGICAL ASSISTANT 07/31/2020 10:43 AM GYNECOLOGICAL ASSISTANT us Ruth Rodriguez DO LAB - PATHOLOGY/CYTOLOGY ORDERABLES Final Result DERMATOPATHOLOGY LABORATORY [facility] - Department of Dermatology [facility] Medicine [address] [place] [address], [address] [phone] documented in this encounter Visit Diagnoses Not on filedocumented in this encounter Care Teams Color Worker Relationship Specialty Start Date End Date Betzaida Chicas MD PCP - General Internal Medicine 11/08/14 06/19/23 Homa Frazier [address], [address] [place] [address] PCP - General 06/20/23 documented as of this encounter
--- OUTSIDE RECORDS SUMMARY | 2025-03-18 14:05 | XMS_ITS | Encounter Summary ---
Author Organization [facility] Health Address [address] [place] [address] Care Team Providers Care Hydraulics Engineer Name Role Phone Betzaida Chicas MD Primary Care Provider Homa Frazier Primary Care Provider [phone] Encounter Details Date Type Department Care Team (Late st Contact Info) Description 01/22/2020 Lab Requisition [facility] MICROBIOLOGY [address] [place] [address] Paula Mills MD [address] [facility] [address] [place] [address] Social History Tobacco Use Types Packs/Day Years Used Date Smoking Tobacco: Passive Smo ke Exposure - Never Smoker Smokeless Tobacco: Never Alcohol Use Standard Drinks/Week Comments Yes 2 (1 standard drink = 0.6 oz pur e alcohol) AUDIT-C Answer Date Recorded Frequency of Alcohol Consumption 2-3 times a wee k 08/30/2019 Average Number of Drinks Not on file 020 Frequency of Binge Drinking Not on file 08/08 Comments No Sex and Gender Information Value Date Recorded Sex Assigned at Not on file Legal 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 Female 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 Gender Identity Not on file Sexual Orientation Not on file documented as of this encounter Plan of Treatment Not on file documented as of this encounter Procedures Procedure Name Priority Date/Time Associated Diagnosis Comments SARS-COV-2 (COVID-19) IN HOUSE Routine 01/21/2020 11:21 AM CDT documented in this encounter Results * SARS-COV-2 (COVID-19) IN HOUSE (01/21/2020 11:21 AM CDT) COVID-19 PCR Not detected Not detected, Invalid 01/23/2020 6:16 AM CDT [facility] Microbiology SPECIMEN FROM NASOPHARYNGEAL STRUCTURE / Unknown Collection / Unknown 01/21/2020 11:21 AM CDT 01/22/2020 12:02 PM CDT Narrative [facility] - 01/23/2020 6:16 AM CDT This Real Time RT-PCR assay was developed and its performance characteristics determined by [facility]. This test has been authorized by the Food and Drug administration (FDA)under an Emergency Use Authorization (EUA). This test has been validated in accordance with the FDA's guidance document Policy for Diagnostic Testing in Laboratories Certified to perform High Complexity Testing under CLIA prior to Emergency Use Authorization for Coronavirus Disease-2019 during the Public Health Emergency issued on September 04, 2019. FDA independent review of this validation is pending. This test is only authorized for the duration of time the declaration that circumstances exist justifying the authorization of emergency use of in vitro diagnostic tests for detection of SARS-CoV-2 virus and/or diagnosis of COVID-19 infection under section 564(b)(1) of the Act, 21 U.S.C 360bbb-3 (b)(1), unless the authorization is terminated or revoked sooner. us Paula Mills MD LAB - MICROBIOLOGY ORDERABL ES Final Result [facility] [address] [place] [address], [facility] [phone] documented in this encounter Visit Diagnoses Not on filedocumented in this encounter Additional Health Concerns Infection Onset Date Last Indicated Resolved Time COVID-19 Under Investigation 01/21/2020 01/21/2020 01/23/2020 6:16 AM CDT documented as of this encounter Care Teams Hydraulics Engineer Relationship Specialty Start Date End Date Betzaida Chicas MD PCP - General Internal Medicine 11/08/14 06/19/23 [facility]oma Frazier [address] [facility] [address] [place] [address] PCP - General 06/20/23 documented as of this encounter
--- OUTSIDE RECORDS SUMMARY | 2025-03-18 14:05 | XMS_ITS | Patient Health Record ---
Author Organization [facility] [employer] ([address]) Address [address] [place] [address] Care Team Providers Care Wheat Inspector Name Role Phone Betzaida Chicas Primary Care Provider Elizabeth Aragon Unavailable [phone] Dragan East Unavailable [phone] Allergies Allergen (clinical drug ingredient) Drug/Non Drug Allergy documented on EMR Reaction Allergy Type Onset Date Status KETEK (uncoded) Dizziness Allergy Acti ve erythromycin Erythromycin Diarrhea Drug Allergy A ctive Results Component Value Reference Range Notes Spirometry Reviewed date: Interpretation:Normal Performing Lab: Notes/Report: Normal SpiroPreBronchodilator_FVC 3.08 SpiroPostBronchodilator_FEF25_75 0 SpiroPreBronchodilator_FEF25_75 1.49 SpiroPreBronchodilator_FEV1 2.22 SpiroPrecentPredictionPost_FEF25_75 0 SpiroPrecentPredictionPost_FEV1 0 SpiroPrecentPredictionPost_FEV1_OVER_FVC 0 SpiroPrecentPredictionPost_FVC 0 SpiroPrecentPredictionPre_FEF25_75 54 SpiroPrecentPredictionPre_FEV1 81.3 SpiroPrecentPredictionPre_FEV1_OVER_FVC 90.7 SpiroPrecentPredictionPre_FVC 90.3 SpiroPredicted_FEF25_75 2.76 SpiroPreBronchodilator_FEV1_OVER_FVC 71.96 SpiroPreBronchodilator_PEF 6.71 SpiroPostBronchodilator_FVC 0 SpiroPostBronchodilator_FEV1 0 SpiroPostBronchodilator_FEV1_OVER_FVC 0 SpiroPostBronchodilator_PEF 0 SpiroPredicted_FVC 3.41 SpiroPredicted_FEV1 2.73 SpiroPredicted_FEV1_OVER_FVC 79.37 SpiroPredicted_PEF 6.07 Reason For Referral No Information Medications Medication SIG (Take, Route, Frequency, Duration) Notes Start Date End Date Status QNASL 80 mcg/inh 2 spray(s) intranasally once a day; Duration: 90 days Active Metoprolol Succinate ER *Please review and pick correct strength-formula tion from Thinktwice options. If intended option is not shown, discontinue and re-order from Quick Search* Active NASAL WASHES N/A as directed intranasally as needed; Duration: 30 Active Savella 12.5 MG 1 tab(s) orally 2 times a day; Duration: 2 day(s) Active ELIDEL 1% 1 xochilt applied topically 2 times a day; Duration: 90 days Active Breo Ellipta 100 MCG-25 MCG/INH 1 PUFF(S) INHALED ONCE A DAY; Duration: 90 DAYS *Please review and pick correct strength-formula tion from Thinktwice options. If intended option is not shown, discontinue and re-order from Quick Search* Active PATADAY 0.2% 1 gtt in each affected eye once a day; Duration: 10 day(s) Active PROAIR HFA CFC FREE 90 MCG/INH 2 PUFF(S) INHALED Q4-6 HOURS, PRN AND PER THE ASTHMA ACTION PLAN; Duration: 90 DAYS *Please review for potential replacement for e-prescription and drug interaction check* Active Levocetirizine Dihydrochloride 5 MG 1 tablet in the evening Orally Once a day; Duration: 90 days 01/04/2025 Active Albuterol Sulfate HFA 108 (90 Base) MCG/ACT 1 puff as needed Inhalation every 4 hrs; Duration: 30 days 01/26/2024 Active Albuterol Sulfate HFA 108 (90 Base) MCG/ACT 2 puffs as needed Inhalation every 4 hrs; Duration: 30 days 01/04/2025 Active Wellbutrin XL 150 MG 1 tab(s) orally Active BREO ELLIPTA 100 mcg-25 mcg/inh 1 puff(s) inhaled once a day; Duration: 90 days Active amLODIPine Besylate *Please revi ew and pick correct strength-formula tion from mediafeediaspan options. If intended option is not shown, discontinue and re-order from Quick Search* Active AUVI-Q 0.3 mg as directed intramuscularly once; Duration: 1 day Active Hydroxychloroquine Sulfate 200 MG 1 tab(s) orally once a day Active SIT (TRADITIONAL) variable per schedule SC per schedule Active Levocetirizine Dihydrochloride 5 MG 1 tab(s) orally once a day (in the evening); Duration: 90 days Active Pataday 0.2 % 1 gtt in each affected eye once a day; Duration: 10 days As needed Active EpiPen 2-David 0.3 MG/0.3ML 0.3 mg intramuscularly once; Duration: 30 day(s) Active Immunizations Vaccine Route Administration Date Status Comme nts Fluzone Quadrivalent Unknown 07/08/2017 Administered Fluzone Quadrivalent Unknown 04/22/2016 Administered Pneumovax 23 Unknown 02/07/2020 Administered NOC Fluzone Quadrivalent Unknown 09/29/2018 Refused Flucelvax IM Intramuscular 04/21/2019 Administered NOC Flucelevax Quadrivalent Unknown 05/09/2020 Administered Social History Tobacco Use: Social History Observation Description Date Details (start date - stop date) Never Smoker NA - NA Sex Assigned At : Social History Observation Description Sex Assigned At Female Smoking Smart Form: Question Answer Notes Are you a: never smoker Problems Problem Type SNOMED Code ICD Code Onset Dates Problem Status W/U Status Risk Notes Problem Information temporarily unavailable HTN [Hypertension] (401.9) Active confirmed Problem Information temporarily unavailable Obstructive sleep apnea (adult) (pediatric) (G47.33) Active confirmed Problem Information temporarily unavailable Other chronic allergic conjunctivitis (H10.45) Active confirmed Problem Information temporarily unavailable Essential (primary) hypertension (I10) Active confirmed Problem Information temporarily unavailable Allergic rhinitis due to pollen (J30.1) Active confirmed Problem Information temporarily unavailable Allergic rhinitis due to animal (cat) (dog) hair and dander (J30.81) Active confirmed Problem Information temporarily unavailable Other allergic rhinitis (J30.89) Active confirmed Problem Information temporarily unavailable Moderate persistent asthma, uncomplicated (J45.40) Active confirmed Problem Information temporarily unavailable Atopic dermatitis, unspecified (L20.9) Active confirmed Problem Information temporarily unavailable Dermatitis due to ingested food (L27.2) Active confirmed Problem Information temporarily unavailable Dermatitis, unspecified (L30.9) Active confirmed Problem Information temporarily unavailable Angioneurotic edema, subsequent encounter (T78.3XXD) Active confirmed Problem Information temporarily unavailable Allergic rhinitis due to pollen (J30.1) Active confirmed Problem Information temporarily unavailable Allergic rhinitis due to animal (cat) (dog) hair and dander (J30.81) Active confirmed Problem Information temporarily unavailable Other allergic rhinitis (J30.89) Active confirmed Problem Information temporarily unavailable Angioneurotic edema, initial encounter (T78.3XXA) Active confirmed Problem Information temporarily unavailable Other chronic allergic conjunctivitis (H10.45) Active confirmed Problem Information temporarily unavailable Essential (primary) hypertension (I10) Active confirmed Vital Signs Oximetry 98 % 01/04/2025 Blood pressure diastolic 73 mm Hg 01/04/2025 Height 65.5 in 01/04/2025 Blood pressure systolic 117 mm Hg 01/04/2025 Weight 161.8 lbs 01/04/2025 BMI 26.51 kg/m2 01/04/2025 Encounters Encounter Location Date Provider Diagnosis [facility] [address] [address] 05/25/2024 Elizabeth Cook Allergic rhinitis du e to pollen J30.1 ; Allergic rhinitis due to animal (cat) (dog) hair and dander J30.81 ; Other allergic rhinitis J30.89 and Other chronic allergic conjunctivitis H10.45 [facility] [address] [place] [phone] 04/27/2024 Elizabeth Cook Allergic rhinitis du e to pollen J30.1 ; Allergic rhinitis due to animal (cat) (dog) hair and dander J30.81 ; Other allergic rhinitis J30.89 and Other chronic allergic conjunctivitis H10.45 [facility] [address] [place] [phone] 03/25/2024 Elizabeth Cook Allergic rhinitis du e to pollen J30.1 ; Allergic rhinitis due to animal (cat) (dog) hair and dander J30.81 ; Other allergic rhinitis J30.89 and Other chronic allergic conjunctivitis H10.[address] [address] 03/02/2025 Elizabeth Cook Allergic rhinitis du e to pollen J30.1 ; Allergic rhinitis due to animal (cat) (dog) hair and dander J30.81 ; Other allergic rhinitis J30.89 and Other chronic allergic conjunctivitis H10.45 [facility] [address] [place], [place] [address] [address] [place] [phone] 02/23/2025 Elizabeth Cook Allergic rhinitis du e to pollen J30.1 ; Allergic rhinitis due to animal (cat) (dog) hair and dander J30.81 ; Other allergic rhinitis J30.89 and Other chronic allergic conjunctivitis H10.45 [facility] [address] [place], [place] [address] [address] [place] [phone] 12/02/2024 Elizabeth Cook Allergic rhinitis du e to pollen J30.1 ; Allergic rhinitis due to animal (cat) (dog) hair and dander J30.81 ; Other allergic rhinitis J30.89 and Other chronic allergic conjunctivitis H10.45 [facility] [address] [place], [place] [address] [address] [place] [phone] 11/01/2024 Elizabeth Cook Allergic rhinitis du e to pollen J30.1 ; Allergic rhinitis due to animal (cat) (dog) hair and dander J30.81 ; Other allergic rhinitis J30.89 and Other chronic allergic conjunctivitis H10.45 [facility] [address] [place], [place] [address] [address] [place] [phone] 09/30/2024 Elizaebth Cook Allergic rhinitis du e to pollen J30.1 ; Allergic rhinitis due to animal (cat) (dog) hair and dander J30.81 ; Other allergic rhinitis J30.89 and Other chronic allergic conjunctivitis H10.45 [facility] [address] [place], [place] [address] [address] [place] [phone] 08/30/2024 Elizabeth Cook Allergic rhinitis du e to pollen J30.1 ; Allergic rhinitis due to animal (cat) (dog) hair and dander J30.81 ; Other allergic rhinitis J30.89 and Other chronic allergic conjunctivitis H10.45 [facility] [address] [place], [place] [address] [address] [place] [phone] 07/27/2024 Elizabeth Cook Allergic rhinitis du e to pollen J30.1 ; Allergic rhinitis due to animal (cat) (dog) hair and dander J30.81 ; Other allergic rhinitis J30.89 and Other chronic allergic conjunctivitis H10.45 [facility] [address] [place] [phone] 07/20/2024 Elizabeth Cook Allergic rhinitis du e to pollen J30.1 ; Allergic rhinitis due to animal (cat) (dog) hair and dander J30.81 ; Other allergic rhinitis J30.89 and Other chronic allergic conjunctivitis H10.[address] [address] 01/04/2025 Elizabeth Cook Moderate persistent asthma, uncomplicated J45.40 ; Allergic rhinitis due to pollen J30.1 ; Allergic rhinitis due to animal (cat) (dog) hair and dander J30.81 ; Other allergic rhinitis J30.89 ; Other chronic allergic conjunctivitis H10.45 ; Dermatitis due to ingested food L27.2 ; Atopic dermatitis, unspecified L20.9 ; Obstructive sleep apnea (adult) (pediatric) G47.33 and Essential (primary) hypertension I10 [address] [address] 07/13/2024 Elizabeth Cook Allergic rhinitis du e to pollen J30.1 ; Allergic rhinitis due to animal (cat) (dog) hair and dander J30.81 ; Other allergic rhinitis J30.89 and Other chronic allergic conjunctivitis H10.[address] [address] 12/09/2024 Elizabeth Cook [address] [address] 06/07/2024 Elizabeth Cook Allergic rhinitis du e to pollen J30.1 Assessments Encounter Date Diagnosis (ICD Code) Assessment Notes Treatment Notes Treatment Clinical Notes Section Notes 03/25/2024 Allergic rhinitis due to pollen (ICD-10 [...] rhinitis due to pollen (ICD-10 - J30.1) 12/02/2024 Allergic rhinitis due to pollen (ICD-10 - J30.1) 01/04/2025 Allergic rhinitis due to pollen (ICD-10 - J30.1) Rosemary clearly suffers from atopic disease based upon our skin testing today. Accordingly, we have introduced a new, aggressive medication regimen, discussed nasal washes and allergy-specific avoidance measures. We also discussed adjunctive therapies including subcutaneous, specific allergen immunotherapy as relates to the treatment and prevention of atopic disease. She is tolerating SCIT without large local or systemic symptoms. She was instructed to carry her epinephrine autoinjector for 2 hours after leaving the office. 01/04/2025 Moderate persistent asthma, uncomplicated (ICD-10 - J45.40) Moderate persistent asthma under good control with prn Breo. ACT 22. Spirometry today is normal. On initial visit FEV1 69% and 8% improvement following albuterol. Prior bloodwork for ABPA was normal and normal IgG 1132, IgA, and IgM. IgE 553. Asthma action plan reviewed. Restart Breo if needed. Continue prn albuterol. 02/23/2025 Allergic rhinitis due to pollen (ICD-10 - J30.1) 03/02/2025 Allergic rhinitis due to pollen (ICD-10 - J30.1) 03/02/2025 Allergic rhinitis due to animal (cat) (dog) hair and dander (ICD-10 - J30.81) 02/23/2025 Allergic rhinitis due to animal (cat) (dog) hair and dander (ICD-10 - J30.81) 01/04/2025 Allergic rhinitis due to animal (cat) (dog) hair and dander (ICD-10 - J30.81) Recommend medications, allergen avoidance measures, and SCIT as above 12/02/2024 Allergic rhinitis due to animal (cat) (dog) hair and dander (ICD-10 - J30.81) 11/01/2024 Allergic rhinitis due to animal (cat) [...] hair and dander (ICD-10 - J30.81) 03/25/2024 Other allergic rhinitis (ICD-10 - J30.89) 04/27/2024 Other allergic rhinitis (ICD-10 - J30.89) 05/25/2024 Other allergic rhinitis (ICD-10 - J30.89) 07/13/2024 Other allergic rhinitis (ICD-10 - J30.89) 07/20/2024 Other allergic rhinitis (ICD-10 - J30.89) 07/27/2024 Other allergic rhinitis (ICD-10 - J30.89) 08/30/2024 Other allergic rhinitis (ICD-10 - J30.89) 09/30/2024 Other allergic rhinitis (ICD-10 - J30.89) 11/01/2024 Other allergic rhinitis (ICD-10 - J30.89) 12/02/2024 Other allergic rhinitis (ICD-10 - J30.89) 01/04/2025 Other allergic rhinitis (ICD-10 - J30.89) 02/23/2025 Other allergic rhinitis (ICD-10 - J30.89) 03/02/2025 Other allergic rhinitis (ICD-10 - J30.89) 03/02/2025 Other chronic allergic conjunctivitis (ICD-10 - H10.45) 01/04/2025 Other chronic allergic conjunctivitis (ICD-10 - H10.45) Given ocular signs and symptoms, I strongly encouraged allergy avoidance measures, medications including intraocular antihistamine/mas t cell stabilizer, PRN 02/23/2025 Other chronic allergic conjunctivitis (ICD-10 - H10.45) 12/02/2024 Other chronic allergic conjunctivitis (ICD-10 - H10.45) 11/01/2024 Other chronic allergic conjunctivitis (ICD-10 - [...] Other chronic allergic conjunctivitis (ICD-10 - H10.45) 01/04/2025 Dermatitis due to ingested food (ICD-10 - L27.2) Rosemary has a history of tolerating peanut butter, but does not tolerate certain candy including Franck's peanut butter cups and Karen bars due to increase in oral secretions, throat tightening, and asthma exacerbation. Similar reactions occur when eating boxes of assorted chocolates. Skin prick testing positive to only peanut and negative peanut and tree nut ImmunoCAPs. Previous skin testing performed in the past by Dr. Jackson revealed skin testing positive for tree nuts. Symptoms with nuts may be secondary to sulfites. She tolerates pecans, cashews, and pistachios. For now, EpiPen to be available at all times. 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 Instructed on sulfite allergy and avoidance. 01/04/2025 Atopic dermatitis, unspecified (ICD-10 - L20.9) She is following with Dr. Rodriguez and much improvement with Joan 01/04/2025 Obstructive sleep apnea (adult) (pediatric) (ICD-10 - G47.33) hypoglossal nerve stimiulator surgery performed 01/04/2025 Essential (primary) hypertension (ICD-10 - I10) We discussed the difficulty in treating systemic reactions in patients taking beta blockers. She was instructed to hold the beta duke the morning of immunotherapy and take the medication 2 hours after leaving the office. 01/04/2025 Other Plan Of Treatment Pending Test Test Name Order Date Spirometry 02/20/2022 Next Appt Details Provider Name:Elizabeth sargent, 03/30/2025 12:30:00 PM, [address] [employer], [address] [place] [address], [phone], Provider Name:Elizabeth sargent, 04/27/2025 12:30:00 PM, [address] [employer], [address], [place], [address], Insurance Providers Payer Name Payer Address Payer Phone Subscriber Number Group Number Insured Name Patient Relationship to Insured Coverage Start Date Coverage End Date [facility] [address] [place] [phone] [id number] Maximus Marroquin Spouse - patient is the spouse of the insured Medical (General) History Medical History History ICD Code Hypertension Allergic rhinitis Asthma Sjogren's disease Fibromyalgia Surgical History Surgery Date(Month/Year) laparoscopy 1993, 1996 2000 Septoplasty 1996 [facility] 06/2021 Hospitalization History Reason Date(Month/Year) pneumonia 1975
--- OUTSIDE RECORDS SUMMARY | 2025-03-18 14:06 | XMS_ITS | Encounter Summary ---
Author Organization [facility] Health Address [address] [place] [address] Care Team Providers Care Hat Body Inspector Name Role Phone Betzaida Chicas MD Primary Care Provider [phone] Homa Frazier Primary Care Provider [phone] Encounter Details Date Type Department Care Team (Late st Contact Info) Description 09/01/2018 Telemedicine [facility] Obstetrics Gynecology and Women's Health [address] [place] [address] Tayler Cintron MD [address] [place] [phone] Social History Tobacco Use Types Packs/Day Years Used Date Smoking Tobacco: Never Assessed Comments No Sex and Gender Information Value Date Recorded Sex Assigned at Not on file 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 Gender Identity Not on file Sexual Orientation Not on file documented as of this encounter Plan of Treatment Not on file documented as of this encounter Visit Diagnoses Not on filedocumented in this encounter Additional Health Concerns Infection Onset Date Last Indicated Resolved Time COVID-19 Under Investigation 01/21/2020 01/21/2020 01/23/2020 6:16 AM CDT documented as of this encounter Care Teams Hat Body Inspector Relationship Specialty Start Date End Date Betzaida Chicas MD PCP - General Internal Medicine 11/08/14 06/19/23 Homa Frazier [id number] [facility], [address] [place] [address] PCP - General 06/20/23 documented as of this encounter
--- OUTSIDE RECORDS SUMMARY | 2025-03-18 14:06 | XMS_ITS | Patient Health Record ---
Author Organization [facility] [employer] Address [address] [facility] [address] [place] [address] Care Team Providers Care Registered Dental Assistant Rda Name Role Phone Paula Lobo Unavailable [phone] Reason For Referral No Information Medications Medication SIG (Take, Route, Frequency, Duration) Notes Start Date End Date Status AFLURIA QUAD 7769-2002 60 MCG (15 MCG X 4)/0.5 ML IM SUSPENSION *Reorder from [employer]eloop for eRx and Interaction Alerts* 05/05/2018 Active Hydroxychloroquine Sulfate 200 MG Tablet Oral 05/05/2018 Active Lisinopril *Pick strength-form from imageloop for eRX* 05/05/2018 Active Escitalopram Oxalate 10 MG Tablet Oral 05/05/2018 Active ALPRAZolam 0.5 MG Tablet Oral 05/05/2018 Active Lisinopril 20 MG Tablet Oral 05/05/2018 Active Xanax 0.5 MG Tablet Oral 05/05/2018 Active Wellbutrin XL 150 MG Tablet Extended Release 24 Hour Oral 05/05/2018 Active Lexapro 10 MG Tablet Oral 05/05/2018 Active Immunizations Vaccine Route Administration Date Status Comme nts Influenza virus vaccine, quadrivalent (IIV4), split virus, 0.25 mL dosage Unknown 04/28/2018 Administered Social History Social History Additional Details Category Social Info Options Details Migrated Social History Migrated Social History Alcohol Intake: Occasional 05/05/2018,Tobacco Years: Never smoker 05/05/2018 Plan Of Treatment No Information Insurance Providers Payer Name Payer Address Payer Phone Subscriber Number Group Number Insured Name Patient Relationship to Insured Coverage Start Date Coverage End Date [facility] [address] [place] [phone] [id number] GEOVANNA LI Spouse - patient is the spouse of the insured Medical (General) History Surgical History Surgery Date(Month/Year) Endometr ablate thermal (50773)
--- OUTSIDE RECORDS SUMMARY | 2025-03-18 14:06 | XMS_ITS | Patient Health Record ---
Author Organization [facility] Address [address] [facility] [address] [place], [place] [id number] Care Team Providers Care Seed Cutter Name Role Phone Homa Frazier Primary Care Provider Erum Portillo Unavailable [phone] Keturah Bullock Unavailable [phone] ALLERGIES Allergen (clinical drug ingredient) Drug/Non Drug Allergy documented on EMR Reaction Allergy Type Onset Date Status erythromycin Unknown Drug Allergy Acti ve benazepril Benzapril (uncoded) Unknown Allergy Active RESULTS Component Value Reference Range Notes Complement C4, Serum Reviewed date:06/04/2024 06:04:50 PM Interpretation: Performing Lab:[facility], [address] [facility], Phone - [phone], Director - [facility] Notes/Report: Complement C4, Serum 16 12-38 mg/dL CBC With Differential/Platel et Reviewed date:06/04/2024 06:04:50 PM Interpretation: Performing Lab:[facility], [address] [facility], Phone - [phone], Director - [facility] Notes/Report: WBC 12.7 3.4-10.8 x10E3/uL Effective June 07, 2024 profile [id number] WBC will be made non-orderable as a [...] Westergren Reviewed date:06/04/2024 06:04:50 PM Interpretation: Performing Lab:[facility] [address], Phone - [phone], Director - [facility] Notes/Report: Sedimentation Rate-Mendonergren 4 0-40 mm/hr Complement C3, Serum Reviewed date:06/04/2024 06:04:50 PM Interpretation: Performing Lab:[facility] [address], Phone - [phone], Director - [facility] Notes/Report: Complement C3, Serum 108 82-167 mg/dL Rheumatoid Arthritis Factor Reviewed date:06/04/2024 06:04:50 PM Interpretation: Performing Lab:[facility] [address], Phone - [phone], Director - [facility] Notes/Report: Rheumatoid Factor (RF) <10.0 <14.0 IU/mL C-Reactive Protein, Quant Reviewed date:06/04/2024 06:04:50 PM Interpretation: Performing Lab:[facility] [address], Phone - [phone], Director - [facility] Notes/Report: C-Reactive Protein, Quant 2 0-10 mg/L CCP IgG Antibodies Reviewed date:06/04/2024 06:04:50 PM Interpretation: Performing Lab:[facility] [place], [address] [place] [address], Phone - [phone], Director - [facility] Notes/Report: Anti-CCP Ab, IgG/IgA 5 0-19 units Negative <20 Weak positive 20 - 39 Moderate positive 40 - 59 Strong positive >59 Comp. Metabolic Panel (14) Reviewed date:06/04/2024 06:04:50 PM Interpretation: Performing Lab:[address], Phone - [phone], Director - [facility] Notes/Report: Glucose 78 70-99 mg/dL BUN 15 [...] x Reviewed date:06/04/2024 06:04:50 PM Interpretation: Performing Lab:[facility], [address] [place] [address], Phone - [phone], Director - [facility] Notes/Report: Albumin 3.8 2.9-4.4 g/dL Xcfbx-7-Vtuyshko 0.1 0.0-0.4 g/dL Bucfg-2-Ysjyrifz 0.7 0.4-1.0 g/dL Beta Globulin 1.0 0.7-1.3 g/dL Gamma Globulin 1.1 0.4-1.8 g/dL M-Erwin Not Observed Not Observed g/dL Globulin, Total 2.9 2.2-3.9 g/dL A/G Ratio 1.3 0.7-1.7 Please note: Protein electrophoresis scan will follow via computer, mail, or education adviser delivery. Interpretation(See Below) The SPE pattern appears unremarkable. Evidence of monoclonal protein is not apparent. PDF . PDF Report Reviewed date:06/04/2024 06:04:50 PM Interpretation: Performing Lab:[facility] [place], [address] [place] [address], Phone - [phone], [facility] - [facility] Notes/Report: PDF Report1 LCLS CBC With Differential/Platel et Reviewed date:11/09/2024 03:24:37 PM Interpretation: Performing Lab:[facility], Phone - [phone], [facility] - [facility] Notes/Report: WBC 9.9 3.4-10.8 x10E3/uL RBC 4.97 [...] x10E3/uL NRBC Hematology Comments: Sed Rate - Hayren Reviewed date:11/09/2024 03:24:37 PM Interpretation: [facility]forming [facility], [address] [place] [address], Phone - [phone], [facility] - [facility] Notes/Report: Sedimentation Rate-Westergren 16 0-40 mm/hr Rheumatoid Arthritis Factor Reviewed date:11/09/2024 03:24:37 PM Interpretation: Performing Lab:[address], Phone - [phone], [facility] Notes/Report: Rheumatoid Factor (RF) <10.0 <14.0 IU/mL C-Reactive Protein, Quant Reviewed date:11/09/2024 03:24:37 PM Interpretation: Performing Lab:[address], Phone - [phone], Director [facility] Notes/Report: C-Reactive Protein, Quant 7 0-10 mg/L CCP IgG Antibodies Reviewed date:11/09/2024 03:24:37 PM Interpretation: Performing Lab:[address], Phone - [phone], [facility] Notes/Report: Anti-CCP Ab, IgG/IgA 6 0-19 units Negative <20 Weak positive 20 - 39 Moderate positive 40 - 59 Strong positive >59 Comp. Metabolic Panel (14) Reviewed date:11/09/2024 03:24:37 PM Interpretation: Performing Lab:[address], Phone - [phone], [facility] Notes/Report: Glucose 114 70-99 mg/dL BUN 11 [...] /MS Reviewed date:11/09/2024 03:27:26 PM Interpretation: Performing Lab:[facility] [place], [address] [facility], [place], Phone - [phone], Director - Alexandr Notes/Report: Vitamin D, 25-Hydroxy 17.3 30.0-100.0 ng/mL Vitamin D deficiency has been defined by the [place] [employer] and an Endocrine Society practice guideline as a level of serum 25-OH vitamin D less than 20 ng/mL (1,2). The Endocrine Society went on to further define vitamin D insufficiency as a level between 21 and 29 ng/mL (2). 1. IOM ([place] [employer]). 2010. Dietary reference intakes for calcium and D. [place]: The National Academies Press. 2. Eloisa ISAACS, Mary Grace CHING, Olivia LUNA, et al. Evaluation, treatment, and prevention of vitamin D deficiency: an Endocrine Society clinical practice guideline. JCEM. 2010; 96(7):1911-30. REASON FOR REFERRAL No Information MEDICATIONS Medication SIG (Take, Route, Frequency, Duration) Notes Start Date End Date Status Savella 50 mg TAKE 1 TABLET BY MOUTH TWICE DAILY for 90 Active predniSONE 5 mg 6 tablets for 2 days then decrease by 1 tablet every 2 days until ralph orally once a day for 12 days 12/19/2024 Active hydroxychloroquine 200 mg 1 and 1/2 tab( s) orally once a day Unknown Voltaren Gel - for lower body joint 1% APPLY TOPICALLY TO LOWER BACK AND KNEES, APPLY 4 GRAMS THREE TIMES DAILY NEEDED Unknown TiZANidine Hydrochloride 2 mg 1-2 tab(s) orally PRN for 30 days 05/31/2024 Unknown buPROPion 150 mg/24 hours 1 tab(s) orall y every 24 hours Unknown amlodipine besylate 5 mg one a [...] Elevated C-reactive protein (CRP) (R79.82) Active confirmed 038356569 Problem Other rn long term care (current) drug therapy (Z79.899) Active confirmed 096174380 Problem Vitamin D deficiency (E55.9) Active confirmed 04320738 Problem Fibromyalgia (M79.7) Active confirmed 47087714 Problem Essential (primary) hypertension (I10) Active confirmed Essential hypertension (79108663) Problem Sjogren's disease (M35.00) Active confirmed 50471461 Problem Primary insomnia (F51.01) Active confirmed 3214025 Problem Never smoked cigarettes (Z78.9) Active confirmed 041163515 Problem Bursitis (M71.9) Active confirmed 59249 003 VITAL SIGNS Heart Rate 85 /min 11/08/2024 Blood pressure diastolic 85 mm Hg 11/08/2024 Height 65 in 11/08/2024 Blood pressure systolic 149 mm Hg 11/08/2024 Weight 162 lbs 11/08/2024 BMI 26.96 kg/m2 11/08/2024 Encounters Encounter Location Date Provider Diagnosis [facility] [facility], [facility] [address] [place], [place] [id number] 04/19/2024 Keturah Bullock [facility], [facility] [address] [place], [place] [id number] 05/31/2024 Keturah Bullock Fibromyalgia M79.7 ; Sjogren's disease M35.00 ; Elevated C-reactive protein (CRP) R79.82 ; Other skilled nursing (current) drug therapy Z79.899 ; Rib pain on left side R07.81 ; Rash R21 ; Bursitis M71.9 ; Left hip pain M25.552 and Essential (primary) hypertension I10 [facility] [address] [id number] 08/31/2024 Keturah Bullock [facility] [address] [place] [id number] 09/28/2024 Keturah Bullock [facility] [address] [place] [id number] 11/08/2024 Keturah Bullock Fibromyalgia M79.7 ; Sjogren's disease M35.00 ; Vitamin D deficiency E55.9 ; Other skilled nursing (current) drug therapy Z79.899 ; Elevated C-reactive protein (CRP) R79.82 ; Rib pain on left side R07.81 ; Rash R21 ; Bursitis M71.9 ; Left hip pain M25.552 and Essential (primary) hypertension I10 [facility] [address] [place] [id number] 05/31/2024 Erum Richards [facility] [address] [place] [id number] 11/08/2024 Erum Richards [facility] [address] [place] [address] [id number] 11/09/2024 Erum Richards Vitamin D deficiency E55.9 [facility] [address] [place] [address] [id number] 11/10/2024 Erum Richards [facility] [address] [place] [address] [id number] 07/02/2024 Erum Richards [facility] [address] [place] [address] [id number] 07/02/2024 Erum Richards [facility] [address] [place] [address] [id number] 12/18/2024 Erum Richards [facility] [address] [place] [address] [id number] 12/20/2024 Erum Richards ASSESSMENTS Encounter Date Diagnosis Assessment Notes Treatment Notes Treatment Clinical Notes Section Notes 11/09/2024 Vitamin D deficiency (ICD-10 - E55.9) 05/31/2024 Fibromyalgia (ICD-10 - M79.7) Continue HCQ for Sjogrens. Cont eye exams. Continue Savella for FMS- off NSAIDs due to GIB. Increase to help with stress and anxiety. T-spine xray order given to assess rib pain. Cont exercise. , Labwork drawn to evaluate disease process and to monitor any adverse effects of medications. Discuss weaning off Buspar with PCP since Savella increased. 05/31/2024 Sjogren's disease (ICD-10 - M35.00) Continue HCQ for Sjogrens. Cont eye exams. Continue Savella for FMS- off NSAIDs due to GIB. Increase to help with stress and anxiety. T-spine xray order given to assess rib pain. Cont exercise. , Labwork drawn to evaluate disease process and to monitor any adverse effects of medications. Discuss weaning off Buspar with PCP since Savella increased. 11/08/2024 Fibromyalgia (ICD-10 - M79.7) Continue HCQ for Sjogrens. Cont eye exams. Continue Savella for FMS- off NSAIDs due to GIB. Increase to help with stress and anxiety. T-spine xray order given to assess rib pain. Try Prednisone taper. Cont exercise. , Labwork drawn to evaluate disease process and to monitor any adverse effects of medications. Discuss weaning off Buspar with PCP since Savella increased. 11/08/2024 Sjogren's disease (ICD-10 - M35.00) Continue HCQ for Sjogrens. Cont eye exams. Continue Savella for FMS- off NSAIDs due to GIB. Increase to help with stress and anxiety. T-spine xray order given to assess rib pain. Try Prednisone taper. Cont exercise. , Labwork drawn to evaluate disease process and to monitor any adverse effects of medications. Discuss weaning off Buspar with PCP since Savella increased. 05/31/2024 Elevated C-reactive protein (CRP) (ICD-10 - R79.82) Continue HCQ for Sjogrens. Cont eye exams. Continue Savella for FMS- off NSAIDs due to GIB. Increase to help with stress and anxiety. T-spine xray order given to assess rib pain. Cont exercise. , Labwork drawn to evaluate disease process and to monitor any adverse effects of medications. Discuss weaning off Buspar with PCP since Savella increased. 11/08/2024 Vitamin D deficiency (ICD-10 - E55.9) Continue HCQ for Sjogrens. Cont eye exams. Continue Savella for FMS- off NSAIDs due to GIB. Increase to help with stress and anxiety. T-spine xray order given to assess rib pain. Try Prednisone taper. Cont exercise. , Labwork drawn to evaluate disease process and to monitor any adverse effects of medications. Discuss weaning off Buspar with PCP since Savella increased. 05/31/2024 Other skilled nursing (current) drug therapy (ICD-10 - Z79.899) Continue HCQ for Sjogrens. Cont eye exams. Continue Savella for FMS- off NSAIDs due to GIB. Increase to help with stress and anxiety. T-spine xray order given to assess rib pain. Cont exercise. , Labwork drawn to evaluate disease process and to monitor any adverse effects of medications. Discuss weaning off Buspar with PCP since Savella increased. 11/08/2024 Other skilled nursing (current) drug therapy (ICD-10 - Z79.899) Continue HCQ for Sjogrens. Cont eye exams. Continue Savella for FMS- off NSAIDs due to GIB. Increase to help with stress and anxiety. T-spine xray order given to assess rib pain. Try Prednisone taper. Cont exercise. , Labwork drawn to evaluate disease process and to monitor any adverse effects of medications. Discuss weaning off Buspar with PCP since Savella increased. 05/31/2024 Rib pain on left side (ICD-10 - R07.81) Continue HCQ for Sjogrens. Cont eye exams. Continue Savella for FMS- off NSAIDs due to GIB. Increase to help with stress and anxiety. T-spine xray order given to assess rib pain. Cont exercise. , Labwork drawn to evaluate disease process and to monitor any adverse effects of medications. Discuss weaning off Buspar with PCP since Savella increased. 11/08/2024 Elevated C-reactive protein (CRP) (ICD-10 - R79.82) Continue HCQ for Sjogrens. Cont eye exams. Continue Savella for FMS- off NSAIDs due to GIB. Increase to help with stress and anxiety. T-spine xray order given to assess rib pain. Try Prednisone taper. Cont exercise. , Labwork drawn to evaluate disease process and to monitor any adverse effects of medications. Discuss weaning off Buspar with PCP since Savella increased. 05/31/2024 Rash (ICD-10 - R21) Continue HCQ for Sjogrens. Cont eye exams. Continue Savella for FMS- off NSAIDs due to GIB. Increase to help with stress and anxiety. T-spine xray order given to assess rib pain. Cont exercise. , Labwork drawn to evaluate disease process and to monitor any adverse effects of medications. Discuss weaning off Buspar with PCP since Savella increased. 11/08/2024 Rib pain on left side (ICD-10 - R07.81) Continue HCQ for Sjogrens. Cont eye exams. Continue Savella for FMS- off NSAIDs due to GIB. Increase to help with stress and anxiety. T-spine xray order given to assess rib pain. Try Prednisone taper. Cont exercise. , Labwork drawn to evaluate disease process and to monitor any adverse effects of medications. Discuss weaning off Buspar with PCP since Savella increased. 05/31/2024 Bursitis (ICD-10 - M71.9) Continue HCQ for Sjogrens. Cont eye exams. Continue Savella for FMS- off NSAIDs due to GIB. Increase to help with stress and anxiety. T-spine xray order given to assess rib pain. Cont exercise. , Labwork drawn to evaluate disease process and to monitor any adverse effects of medications. Discuss weaning off Buspar with PCP since Savella increased. 11/08/2024 Rash (ICD-10 - R21) Continue HCQ for Sjogrens. Cont eye exams. Continue Savella for FMS- off NSAIDs due to GIB. Increase to help with stress and anxiety. T-spine xray order given to assess rib pain. Try Prednisone taper. Cont exercise. , Labwork drawn to evaluate disease process and to monitor any adverse effects of medications. Discuss weaning off Buspar with PCP since Savella increased. 05/31/2024 Left hip pain (ICD-10 - M25.552) Continue HCQ for Sjogrens. Cont eye exams. Continue Savella for FMS- off NSAIDs due to GIB. Increase to help with stress and anxiety. T-spine xray order given to assess rib pain. Cont exercise. , Labwork drawn to evaluate disease process and to monitor any adverse effects of medications. Discuss weaning off Buspar with PCP since Savella increased. 11/08/2024 Bursitis (ICD-10 - M71.9) Continue HCQ for Sjogrens. Cont eye exams. Continue Savella for FMS- off NSAIDs due to GIB. Increase to help with stress and anxiety. T-spine xray order given to assess rib pain. Try Prednisone taper. Cont exercise. , Labwork drawn to evaluate disease process and to monitor any adverse effects of medications. Discuss weaning off Buspar with PCP since Savella increased. 05/31/2024 Essential (primary) hypertension (ICD-10 - I10) Continue HCQ for Sjogrens. Cont eye exams. Continue Savella for FMS- off NSAIDs due to GIB. Increase to help with stress and anxiety. T-spine xray order given to assess rib pain. Cont exercise. , Labwork drawn to evaluate disease process and to monitor any adverse effects of medications. Discuss weaning off Buspar with PCP since Savella increased. 11/08/2024 Left hip pain (ICD-10 - M25.552) Continue HCQ for Sjogrens. Cont eye exams. Continue Savella for FMS- off NSAIDs due to GIB. Increase to help with stress and anxiety. T-spine xray order given to assess rib pain. Try Prednisone taper. Cont exercise. , Labwork drawn to evaluate disease process and to monitor any adverse effects of medications. Discuss weaning off Buspar with PCP since Savella increased. 11/08/2024 Essential (primary) hypertension (ICD-10 - I10) Continue HCQ for Sjogrens. Cont eye exams. Continue Savella for FMS- off NSAIDs due to GIB. Increase to help with stress and anxiety. T-spine xray order given to assess rib pain. Try Prednisone taper. Cont exercise. , Labwork drawn to evaluate disease process and to monitor any adverse effects of medications. Discuss weaning off Buspar with PCP since Savella increased. PLAN OF TREATMENT Pending Test Test Name [...] order 2023 - dsDNA (nDNA) Scrn by Crithidia 017 - dsDNA (nDNA) Scrn by Crithidia 019 Lab slip given 08/12/2016 -Xray slip given 12/23/2023 -Xray slip given 05/31/2024 -Xray slip given 08/13/2017 X ray : Spines, thoracic- outside order 05/31/2024 DS DNA ANTIBODY, CRITHIDIA, IFA W/REFL Q UEST 06/24/2023 DS DNA ANTIBODY, CRITHIDIA, IFA W/REFL Q UEST 05/10/2022 Future Test Test Name Order Date AST (SGOT) 07/16/2023 ALT (SGPT) 07/16/2023 Next Appt Details Provider Name:Keturah Bullock, 04/11/2025 11:30:00 AM, [address] [facility], [address], [place], [place], [phone], Insurance Providers Payer Name Payer Address Payer Phone Subscriber Number Group Number Insured Name Patient Relationship to Insured Coverage Start Date Coverage End Date [employer] [address] [address] [place] [address] [id number] Maximus Marroquin Spouse - patient is the spouse of the insured 0 MEDICAL (GENERAL) HISTORY Medical History History ICD Code bruises easily tension headaches dizziness sinus problems swollen glands in neck chest pain high blood pressure asthma indigestion Lack of bladder control Hot Flashes anxiety depression BCCA BRANDON Surgical History Surgery Date(Month/Year) Septoplasty 1998 laparoscopy 1999,1995
== END 2025-03-18 13:49 | disposition home or self-care (01) ==
PROVIDERS: Emergency Provider Nurse Practitioner Family
DX: H66.003 Acute suppurative otitis media without spontaneous rupture of ear drum, bilateral (principal); I10 Essential (primary) hypertension; M35.00 Sjogren syndrome, unspecified
CPT/HCPCS: 99213; G0463

== ENCOUNTER 2025-04-17 12:07 | Emergency (ER) | payer BC, SELFPAY ==
[2025-04-17 12:25] VITALS: BP 150/72; PULSE 76; RESP 18; TEMP 36.9; O2SAT 99
--- NOTE | 2025-04-17 12:50 | ED_ITS ---
HPI - Ear Problem General Chief complaint: Ear Stated complaint: L Ear Time Seen by Provider: 04/17/25 12:41 Source: patient, RN notes reviewed and old records reviewed Mode of arrival: ambulatory Limitations: no limitations History of Present Illness HPI Narrative: 55-year-old female patient presents today with a 1 month history of left ear pain. She was seen here at [facility] 1 month ago, diagnosed with bilateral otitis media and prescribed a 10 day course of amoxicillin. States symptoms improved but never fully resolved. Last night symptoms worsened again in the left ear with decreased hearing and fullness. She currently rates her pain 2/10 and has tried ibuprofen with some improvement. Denies any additional upper respiratory symptoms to include congestion, cough. Related Data Home Medications ?Medication ?Instructions ?Recorded ?Confirmed ?Last Taken ?Type bupropion HCl 150 mg 24 hr tablet, 300 mg PO DAILY 11/2305/01/24 12/09/19 History extended release metoprolol succinate 25 mg 25 mg PO DAILY 12/10/1912/09/19 History tablet,extended release 24 hr hydroxychloroquine 200 mg tablet 200 mg PO DAILY 05/2105/01/24 Unknown History (Plaquenil) milnacipran 50 mg tablet (Savella) 50 mg PO DAILY 05/0705/01/24 Unknown History estradiol-norethindrone acet 1 tablet 03/18/25 Unknow n History mg-0.5 mg tablet hydrochlorothiazide 25 mg tablet mg 03/18/25 Unknown History Allergies Allergy/AdvReac Type Severity Reaction Status Date / Time NSAIDS (Non-Steroidal Allergy Intermediate GI bleed Verified 04/17/25 12:28 Anti-Inflamma erythromycin base AdvReac Intermediate NAUSEA/VOMI Verified 04/17/25 12:28 TING telithromycin AdvReac Mild Nausea and Verified 04/17/25 12:28 Vomiting PMFSH Past Medical History Medical History Sjogren's disease Hypertension Social History Social History Smoking status: Never smoker Gender identity (if verbalized by the patient): Female Comments At time of signature, I have reviewed and agree with nursing past medical, surgical, social and family history unless otherwise noted. Please see nursing chart for further information. There is no relevant family history pertinent to the presenting complaint Exam Narrative: GENERAL: Well-appearing, well-nourished, and in no acute distress. HEAD: Normocephalic, atraumatic. EYES: EOMI. No redness or drainage. Conjunctivae normal. ENT: Mucous membranes pink and moist. Nares clear. No rhinorrhea. bilateral mildly injected conjunctiva with slight middle ear effusion. NECK: Normal AROM. CHEST: No respiratory distress. EXTREMITIES: Normal range of motion. No edema. SKIN: Warm, dry, no rash. Capillary refill normal. Normal skin turgor. NEURO: No focal deficits. Alert and oriented x3. Gait steady. PSYCH: Normal affect. No signs of depression or anxiety. Course Course Level of Care: [facility] Visit Vital Signs Vital signs: Vital Signs Temperature 98.5 F 04/17/25 12:25 Pulse Rate 76 04/17/25 12:25 Respiratory Rate 18 04/17/25 12:25 Blood Pressure 150/72 H 04/17/25 12:25 Pulse Oximetry 99 04/17/25 12:25 Oxygen Delivery Room Air 04/17/25 12:25 Temperature 98.5 F 04/17/25 12:25 Pulse Rate 76 04/17/25 12:25 Respiratory Rate 18 04/17/25 12:25 Blood Pressure 150/72 H 04/17/25 12:25 Pulse Oximetry 99 04/17/25 12:25 Oxygen Delivery Room Air 04/17/25 12:25 Review Medical Decision Making [facility] Narrative Medical decision making narrative: 55-year-old female patient presents today with a 1 month history of left ear pain. She was seen here at [facility] 1 month ago, diagnosed with bilateral otitis media and prescribed a 10 day course of amoxicillin. States symptoms improved but never fully resolved. Last night symptoms worsened again in the left ear with decreased hearing and fullness. Upon exam,bilateral mildly injected conjunctiva with slight middle ear effusion. Patient will be treated with Flonase and continue ibuprofen as no signs of bacterial infection are present. Patient agrees with plan. Vital signs stable. Anticipatory guidance given. Differential Diagnosis Differential Diagnosis: Otitis media, otitis externa, ruptured TM, serous otitis, cerumen impaction Vital Signs Vital Signs: Vital Signs Temperature 98.5 F 04/17/25 12:25 Pulse Rate 76 04/17/25 12:25 Respiratory Rate 18 04/17/25 12:25 Blood Pressure 150/72 H 04/17/25 12:25 Pulse Oximetry 99 04/17/25 12:25 Oxygen Delivery Room Air 04/17/25 12:25 Temperature 98.5 F 04/17/25 12:25 Pulse Rate 76 04/17/25 12:25 Respiratory Rate 18 04/17/25 12:25 Blood Pressure 150/72 H 04/17/25 12:25 Pulse Oximetry 99 04/17/25 12:25 Oxygen Delivery Room Air 04/17/25 12:25 Critical Care Time Critical Care Time Critical Care Time: No Discharge Plan Discharge Clinical Impression: Acute serous otitis media of both ears Patient Disposition: Home Condition: Stable Instructions: Fluid In The Ear (Serous Otitis Media) (ED) Additional Instructions: Please use the Flonase as directed. Continue ibuprofen if needed for discomfort. Follow-up with your PCP in 1 week if symptoms are not improving. Patient Language: Mongolian Prescriptions: New fluticasone propionate [Flonase Allergy Relief] 50 mcg/actuation spra y,suspension 2 spray intranasal DAILY PRN (Reason: nasal congestion) Qty: 15.8 0RF Rx Instructions: administer into each nostril No Action Savella 50 mg tablet 50 mg PO DAILY hydroxychloroquine [Plaquenil] 200 mg Tablet 200 mg PO DAILY hydrochlorothiazide 25 mg tablet estradiol-norethindrone acet 1-0.5 mg tablet metoprolol succinate 25 mg tablet extended release 24 hr 25 mg PO DAILY bupropion HCl 150 mg tablet extended release 24 hr 300 mg PO DAILY acetaminophen 500 mg capsule 500 mg PO QID PRN (Reason: pain) Qty: 14 0RF Follow-up/Referrals: UNKNOWN,DOCTOR [Primary Care Provider]
== END 2025-04-17 13:03 | disposition home or self-care (01) ==
PROVIDERS: Emergency Provider Nurse Practitioner
DX: H65.03 Acute serous otitis media, bilateral (principal); I10 Essential (primary) hypertension; M35.00 Sjogren syndrome, unspecified
CPT/HCPCS: 99213; G0463